=== PATIENT | female | born 1950 | race Caucasian/White ===

== ENCOUNTER → 2019-01-06 14:07 | Outpatient (CLI) | payer MEDICARE, OTHER, SELFPAY ==
[2019-01-06 15:35] LABS: Add Manual Diff / Slide Review NO; Basophils Absolute Auto 0 /uL (0-100); Basophils Percent Auto 0.5 % (0-2); Eosinophils Absolute Auto 100 /uL (0-450); Hematocrit 43.3 % (36-46); Hemoglobin 14.1 g/dL (12.0-16.0); Lymphocytes Absolute Auto 2000 /uL (1100-4500); Lymphocytes Percent Auto 36.2 % (25-40); Mean Corpuscular HGB Conc 32.4 % (30-36); Mean Corpuscular Hemoglobin 29.9 PG (26-34); Mean Corpuscular Volume 92.3 fL (80-100); Monocytes Absolute Auto 400 /uL (0-900); Neutrophils Absolute Auto 3100 /uL (1500-7000); Neutrophils Percent Auto 54.3 % (50-75); Platelet Count 176 X10^3/uL (150-400); Red Cell Distribution Width 14.1 % (11.6-14.8); White Blood Cell Count 5.6 X10^3/uL (4.5-11.0)
[2019-01-06 16:09] LABS: BUN Creatinine Ratio 23.3 (6-22); Blood Urea Nitrogen 14 mg/dL (7-17); Calcium 9.4 mg/dL (8.4-10.2); Carbon Dioxide 27 mmol/L (22-32); Chloride 102 mmol/L (98-107); Cholesterol 233 mg/dL (140-199); Estimated Glomerular Filt Rate > 60.0 mL/min (>60); Glucose 83 mg/dL (80-110); HDL Cholesterol 76 mg/dL (40-60); HEMOLYSIS < 15 (0-50); LDL Cholesterol Calculated 133 mg/dL (<100); Potassium 3.8 mmol/L (3.4-5.1); Sodium 140 mmol/L (137-145); Triglycerides 121 mg/dL (35-150)
[2019-01-06 16:23] LABS: Free T4, Direct Thyroxine 1.11 ng/dL (0.78-2.19)
[2019-01-08 16:20] LABS: Triiodothyronine T3 Total 109 ng/dL (76-181)
== END ==
PROVIDERS: Visit Provider Internal Medicine
DX: R06.02 Shortness of breath (principal); E03.9 Hypothyroidism, unspecified
CPT/HCPCS: 36415; 80048; 80061; 84439; 84443; 84480; 85025

== ENCOUNTER → 2019-02-02 08:12 | Outpatient (CLI) | payer MEDICARE, OTHER, SELFPAY ==
--- NOTE | 2019-02-02 09:17 | PM.TREADMILL ---
Cardiac Stress Test Report Referral & Results Date Patient Seen: 02/02/19 Requesting provider: Rahul Tripp Indication: Shortness of breath Rest ECG: Unremarkable Procedure Note: Today following both written and verbal informed consent the patient was exercised according to a standard Sal protocol patient went for a total of 4 minutes 10 seconds achieving a maximum heart rate of 150 for maximum systolic blood pressure of 160. This is approximately 7.0 METS. Exercise was terminated at this point because of dyspnea and inability of patient to continue. Patient was also given Cardiolite through a previously started Hep-Lock IV by the nuclear reactor operator approximately 1 minute prior to the cessation of exercise. No ST-T segment changes were identified Normal heart rate and blood pressure response to exercise Functional aerobic impairment rated 0 on the sedentary scale Impression: No ECG evidence of ischemia Average exercise capacity Please see perfusion imaging report as well Please note: Actual ECG tracings can be found in the PACS system.
--- NOTE | 2019-02-03 17:55 | DI.NM.S_ITS ---
DATE OF SERVICE: 02/02/2019 PROCEDURE: Exercise perfusion study. INDICATIONS: Shortness of breath on exertion, family history of hypertension. RADIOPHARMACEUTICAL: 25.7 mCi technetium-99m Myoview IV was injected at stress and 27.8 mCi technetium-99m Myoview IV was injected at rest. CARDIAC STRESS: Patient underwent exercise perfusion study under the supervision of an attending staff. She walked on Sal protocol for 4 minutes 10 seconds and achieved 103% of target heart rate. There was normal blood pressure response. There was enhance chronotropic response. Baseline EKG revealed sinus rhythm with flattening of ST segment in inferolateral leads. During exercise, there was up to 0.5 to 1-mm horizontal, as well as upsloping, ST depressions in the inferolateral leads. It quickly returned back to baseline in recovery. There were no significant arrhythmias seen. Patient has significant dyspnea during exertion. RAW DATA: There was breast shadow seen. There was increased subdiaphragmatic activity. GATED STUDY: Stress LV ejection fraction 85% without any obvious wall motion abnormalities. Resting end-diastolic volume is 72 mL. No transient ischemic dilatation. TID ratio is 0.84, which is within normal limits. Lung/heart ratio is 0.33, which is within normal limits. MYOCARDIAL PERFUSION SCAN: Stress supine, resting supine, and stress prone images were compared to each other. Stress and resting supine images revealed very small, minimally decreased perfusion of mid anterior wall which got resolved during prone images suggestive of breast tissue attenuation artifact. CONCLUSION: I will call this study a normal myocardial perfusion study with evidence of breast tissue attenuation artifact which got resolved during prone images. There is no convincing ischemia infarction pattern. Patient has poor exercise tolerance. Functional aerobic impairment +22%. Enhance chronotropic response. Patient has significant shortness of breath on exertion. Would recommend pulmonary workup to rule out pulmonary etiology of shortness of breath as well as 2-D echo to make sure there is no diastolic dysfunction. ZacStacia sherman - MALACHI/mian/ doc#: [id number]/job#: [id number] dd: 02/03/2019 16:44:00 dt: 02/03/2019 17:44:00 DICTATING MD/COPIES TO: Yolanda Davis MD; Rahul Tripp MD COPIES MNE: RAFA MOHAN
== END ==
PROVIDERS: PCP Internal Medicine; Visit Provider Internal Medicine
DX: R06.02 Shortness of breath (principal); Z82.49 Family history of ischemic heart disease and other diseases of the circulatory system
CPT/HCPCS: 78452; 93016; 93017; 93018; A9502

== ENCOUNTER → 2019-02-21 16:49 | Outpatient (CLI) | payer MEDICARE, OTHER, SELFPAY ==
--- NOTE | 2019-02-23 09:36 | PM.PFT.1 ---
Pulmonary Function Test Referral & Results Date Patient Seen: 02/21/19 Requesting provider: Rahul Tripp Results: The spirometry demonstrates an FVC of 2.31 L which is 92% of predicted. The FEV1 was measured at 1.80 L which is 95% of predicted. The FEV1/FVC ratio was 78 which is 102% of predicted. Following the administration of bronchodilator there was a 41% improvement in FEF 25-75%. Lung volumes show an SVC of 1.97 L which is 80% of predicted. The diffusing capacity was measured at 16.62 which is 88% of predicted. No hemoglobin value was provided, so no correction for potential anemia could be made, if appropriate. The maximum voluntary ventilation was reduced Interpretation: This study demonstrates probably normal spirometry. There was a benefit and small airway flow following bronchodilator however based on improvement in FEF 25-75%. This might suggest a very mild element of obstructive lung disease. Lung volumes were minimally reduced suggesting perhaps very mild restrictive lung disease Clinical correlation suggested
== END ==
PROVIDERS: PCP Internal Medicine; Visit Provider Internal Medicine
DX: R06.02 Shortness of breath (principal)
CPT/HCPCS: 94060; 94726; 94729

== ENCOUNTER → 2019-02-23 15:50 | Outpatient (CLI) | payer MEDICARE, OTHER, SELFPAY ==
--- NOTE | 2019-02-23 | DI.ECHO.S_ITS ---
[facility] +---------+ : : [address] : : : : [place], : : : : [place] [address] : : : : Phone: [phone] + [id number] Echocardiogram Report + + :Name: IAN KOWALSKI Study Date: 02/23/2019 Height: 60 in : :[facility] Exam Location: IS Weight: 160 lb : : Gender: Female BSA: 1.7 m2 : :: 1950 Age: 68 yrs BP: 115/75 mmHg: :Reason For Study: SOB : : Performed By: Caitlyn Page : :Referring: LETICIA LIMA : + + Interpretation Summary The ejection fraction is estimated to be 60-65%. There is mild aortic regurgitation. Procedure: A two-dimensional transthoracic echocardiogram with color flow and Doppler was performed. The study quality was technically adequate. There is no prior echocardiogram noted for this patient. The patient was in normal sinus rhythm during the exam. Left Ventricle: The left ventricle is normal in size, wall thickness, and systolic function without any focal wall motion abnormalities. The ejection fraction is estimated to be 60-65%. Left ventricular wall motion is normal. Right Ventricle: The right ventricle is normal in size and function. Atria: The left atrium is mildly dilated. Right atrial size is normal. There is no Doppler evidence for an interatrial shunt. Mitral Valve: The mitral valve is normal in structure and function. There is mild mitral annular calcification. There is trace mitral regurgitation. Aortic Valve: The aortic valve is trileaflet. The aortic valve opens well. There is mild aortic regurgitation. There is an eccentric jet of aortic insufficiency directed against the anterior mitral leaflet. Tricuspid Valve: The tricuspid valve is normal in structure and function. There is trace tricuspid regurgitation. Pulmonic Valve: The pulmonic valve is not well visualized. There is a trace or physiologic amount of pulmonic regurgitation. Great Vessels: The aortic root is normal size. The ascending aorta is normal in size. The pulmonary artery is not well visualized, but is probably normal size. The IVC is of normal diameter and collapses greater than 50% with a sniff. This suggests a low right atrial pressure of 3 mm Hg. Pericardium/ Pleura There is no pericardial effusion. There is no pleural effusion. MMode/2D Measurements & Calculations LVIDd: 4.7 cm AoV Openin.9 cm LVIDs: 3.2 cm LVOT diam: 2.2 cm IVSd: 0.63 cm Ao root diam: 3.3 cm LVPWd: 1.0 cm asc Aorta Diam: 3.0 cm LV gooden. diameter/BSA (cm/m^2): 2.8 LV sys. diameter/BSA (cm/m^2): 1.9 FS: 32.4 % EPSS: 0.25 cm LA A2 area: 20.0 cm2 RA long axis: 5.1 cm LA A4 area: 21.3 cm2 RA area: 17.6 cm2 LA length (vol): 5.6 cm RA vol: 51.6 ml LA vol: 64.6 ml RA : 30.4 ml/m2 LA vol index: 38.0 ml/m2 RVD1 (basal): 3.4 cm IVC diam: 1.8 cm TAPSE: 2.4 cm Doppler Measurements & Calculations Ao V2 max: 124.2 cm/sec LVOT Max Dez: 86.8 cm/sec Ao V2 mean: 91.6 cm/sec LV V1 max P.0 mmHg Ao V2 VTI: 25.7 cm LV V1 VTI: 19.2 cm Ao max P.2 mmHg Ao mean P.7 mmHg KASANDRA(I,D): 2.8 cm2 MV E max dez: 99.7 cm/sec KASANDRA(V,D): 2.6 cm2 MV A max dez: 93.3 cm/sec KASANDRA indexed to BSA (cm^2/m^2): 1.7 MV E/A: 1.1 sev ratio: 0.75 Med Peak E' Dez: 6.9 cm/sec E/E' med: 14.4 Lat Peak E' Dez: 9.4 cm/sec E/E' lat: 10.6 E/e' average: 12.5 MV dec time: 0.15 sec TR max dez: 196.0 cm/sec MV P1/2t: 47.2 msec TR max P.5 mmHg MVA(P1/2t): 4.7 cm2 PA V2 max: 60.5 cm/sec SV(LVOT): 72.2 ml PA V2 mean: 47.6 cm/sec PA mean P.97 mmHg PA Accel Time: 0.17 sec Reading Physician:05:28 PM
== END ==
PROVIDERS: PCP Internal Medicine; Visit Provider Internal Medicine
DX: I35.1 Nonrheumatic aortic (valve) insufficiency (principal); R06.02 Shortness of breath
CPT/HCPCS: 93306

== ENCOUNTER → 2020-09-18 10:04 | Outpatient (CLI) | payer MEDICARE, OTHER, SELFPAY ==
[2020-09-18 12:01] LABS: Alanine Aminotransferase 16 IU/L (<35); Albumin 4.2 g/dL (3.5-5.0); Albumin Globulin Ratio 1.6 (1.0-2.8); Alkaline Phosphatase 95 U/L (38-126); Aspartate Aminotransferase 27 IU/L (14-36); BUN Creatinine Ratio 25.9 (6-22); Bilirubin Total 0.6 mg/dL (0.2-1.3); Blood Urea Nitrogen 14 mg/dL (7-17); Calcium 9.4 mg/dL (8.4-10.2); Carbon Dioxide 30 mmol/L (22-32); Chloride 104 mmol/L (98-107); Cholesterol 185 mg/dL (140-199); Estimated Glomerular Filt Rate > 60.0 mL/min (>60); Globulin 2.7 g/dL (1.7-4.1); Glucose 94 mg/dL (80-110); HDL Cholesterol 63 mg/dL (40-60); HEMOLYSIS < 15 (0-50); LDL Cholesterol Calculated 98 mg/dL (<100); Potassium 4.4 mmol/L (3.4-5.1); Sodium 138 mmol/L (137-145); Total Protein 6.9 g/dL (6.3-8.2); Triglycerides 119 mg/dL (35-150)
[2020-09-18 12:18] LABS: Free T3, Triiodothyronine Free 5.02 pg/mL (2.77-5.27); Free T4, Direct Thyroxine 1.03 ng/dL (0.78-2.19)
[2020-09-18 12:31] LABS: Thyroid Stimulating Hormone 1.67 uIU/mL (0.47-4.68)
== END ==
PROVIDERS: PCP Registered Nurse; Referring Provider Registered Nurse; Visit Provider Registered Nurse
DX: E03.9 Hypothyroidism, unspecified (principal); Z79.899 Other long term (current) drug therapy; Z82.49 Family history of ischemic heart disease and other diseases of the circulatory system
CPT/HCPCS: 36415; 80053; 80061; 84439; 84443; 84481

== ENCOUNTER → 2020-09-24 10:02 | Outpatient (CLI) | payer MEDICARE, OTHER, SELFPAY | PROVIDERS: PCP Registered Nurse; Referring Provider Registered Nurse; Visit Provider Registered Nurse | DX: M81.0 Age-related osteoporosis without current pathological fracture (principal) | CPT/HCPCS: 77080 ==

== ENCOUNTER → 2021-10-09 09:29 | Outpatient (CLI) | payer MEDICARE, OTHER, SELFPAY ==
[2021-10-09 10:59] LABS: Free T3, Triiodothyronine Free 3.53 pg/mL (2.77-5.27); Free T4, Direct Thyroxine 1.01 ng/dL (0.78-2.19)
[2021-10-09 11:12] LABS: Thyroid Stimulating Hormone 1.57 uIU/mL (0.47-4.68)
== END ==
PROVIDERS: PCP Registered Nurse; Referring Provider Registered Nurse; Visit Provider Registered Nurse
DX: E03.9 Hypothyroidism, unspecified (principal)
CPT/HCPCS: 36415; 84439; 84443; 84481

== ENCOUNTER → 2021-10-31 10:07 | Outpatient (CLI) | payer MEDICARE, OTHER, SELFPAY ==
[2021-10-31 12:31] LABS: Add Manual Diff / Slide Review NO; Basophils Absolute Auto 100 /uL (0-100); Basophils Percent Auto 1.1 % (0-2); Eosinophils Absolute Auto 100 /uL (0-450); Eosinophils Percent Auto 2.3 % (2-4); Hematocrit 39.7 % (36-46); Hemoglobin 13.2 g/dL (12.0-16.0); Lymphocytes Absolute Auto 1900 /uL (1100-4500); Lymphocytes Percent Auto 41.6 % (25-40); Mean Corpuscular HGB Conc 33.2 % (30-36); Mean Corpuscular Hemoglobin 30.3 PG (26-34); Mean Corpuscular Volume 91.3 fL (80-100); Monocytes Absolute Auto 400 /uL (0-900); Monocytes Percent Auto 7.9 % (3-14); Neutrophils Absolute Auto 2200 /uL (1500-7000); Neutrophils Percent Auto 47.1 % (50-75); Platelet Count 193 X10^3/uL (150-400); Red Blood Cell Count 4.35 X10^6/uL (4.0-5.2); Red Cell Distribution Width 14.2 % (11.6-14.8); White Blood Cell Count 4.6 X10^3/uL (4.5-11.0)
== END ==
PROVIDERS: PCP Registered Nurse; Referring Provider Student in an Organized Health Care Education/Training Program; Visit Provider Student in an Organized Health Care Education/Training Program
DX: Z00.00 Encounter for general adult medical examination without abnormal findings (principal)
CPT/HCPCS: 36415; 85025

== ENCOUNTER → 2021-11-20 09:06 | Outpatient (CLI) | payer MEDICARE, OTHER, SELFPAY ==
[2021-11-20 11:28] LABS: Alanine Aminotransferase 12 IU/L (<35); Albumin 4.1 g/dL (3.5-5.0); Albumin Globulin Ratio 1.8 (1.0-2.8); Alkaline Phosphatase 63 U/L (38-126); Aspartate Aminotransferase 24 IU/L (14-36); BUN Creatinine Ratio 13.8 (6-22); Bilirubin Total 0.5 mg/dL (0.2-1.3); Blood Urea Nitrogen 9 mg/dL (7-17); Calcium 9.3 mg/dL (8.4-10.2); Carbon Dioxide 29 mmol/L (22-32); Chloride 105 mmol/L (98-107); Cholesterol 174 mg/dL (140-199); Estimated Glomerular Filt Rate > 60.0 mL/min (>60); Globulin 2.3 g/dL (1.7-4.1); Glucose 90 mg/dL (80-110); HDL Cholesterol 63 mg/dL (40-60); HEMOLYSIS < 15 (0-50); LDL Cholesterol Calculated 92 mg/dL (<100); Potassium 4.2 mmol/L (3.4-5.1); Sodium 139 mmol/L (137-145); Total Protein 6.4 g/dL (6.3-8.2); Triglycerides 93 mg/dL (35-150)
== END ==
PROVIDERS: PCP Registered Nurse; Referring Provider Registered Nurse; Visit Provider Registered Nurse
DX: E03.9 Hypothyroidism, unspecified (principal); E78.5 Hyperlipidemia, unspecified
CPT/HCPCS: 36415; 80053; 80061

== ENCOUNTER → 2022-11-05 15:27 | Outpatient (CLI) | payer MEDICARE, OTHER, SELFPAY ==
--- NOTE | 2022-11-05 15:29 | DI.RAD.S_ITS ---
PROCEDURE: XR KNEE RT 3V INDICATIONS: standing weight bearing AP and lat, as well as sunrise TECHNIQUE: 3 views of the knee were acquired. COMPARISON: None. FINDINGS: Bones: No fractures or dislocations. No suspicious bony lesions. Mild tricompartmental periarticular osteophyte formation. Severe medial compartment narrowing. Soft tissues: No joint effusion. No suspicious soft tissue calcifications. IMPRESSION: 1. Osteoarthritis with medial compartment narrowing. 2. No acute fracture. No osseous lesion. If symptoms and/or clinical suspicion for pathology persist, further assessment with repeat, or advanced imaging (e.g., CT, MRI, or bone scan) may be helpful for further assessment. Dictated by: Christa Sauer M.D. on 11/05/2022 at 16:20 Transcribed by: TOBI on 11/05/2022 at 16:20 Approved by: Christa Sauer M.D. on 11/05/2022 at 16:33
[2022-11-05 17:45] LABS: BUN Creatinine Ratio 22.2 (6-22); Blood Urea Nitrogen 18 mg/dL (7-17); Calcium 9.2 mg/dL (8.4-10.2); Carbon Dioxide 23 mmol/L (22-32); Chloride 104 mmol/L (98-107); Estimated Glomerular Filt Rate > 60 mL/min (>60); Glucose 84 mg/dL (80-110); HEMOLYSIS < 15 (0-50); Potassium 4.3 mmol/L (3.4-5.1); Sodium 136 mmol/L (137-145)
[2022-11-05 17:58] LABS: Free T3, Triiodothyronine Free 3.69 pg/mL (2.77-5.27)
[2022-11-05 18:11] LABS: Thyroid Stimulating Hormone 1.51 uIU/mL (0.47-4.68)
== END ==
PROVIDERS: PCP Family Medicine; Referring Provider Family Medicine; Visit Provider Family Medicine
DX: M25.561 Pain in right knee (principal); M17.11 Unilateral primary osteoarthritis, right knee; E03.9 Hypothyroidism, unspecified
CPT/HCPCS: 36415; 73562; 80048; 84439; 84443; 84481

== ENCOUNTER → 2022-11-06 15:01 | Outpatient (CLI) | payer MEDICARE, OTHER, SELFPAY ==
[2022-11-07 17:01] LABS: Fecal Immunochemical Test Negative (Negative)
== END ==
PROVIDERS: PCP Family Medicine; Referring Provider Family Medicine; Visit Provider Family Medicine
DX: Z12.11 Encounter for screening for malignant neoplasm of colon (principal)
CPT/HCPCS: 82274

== ENCOUNTER → 2024-02-17 09:30 | Outpatient (CLI) | payer MEDICARE, OTHER, SELFPAY ==
[2024-02-17 11:05] LABS: BUN Creatinine Ratio 20.7 (6-22); Blood Urea Nitrogen 12 mg/dL (7-17); Calcium 9.4 mg/dL (8.4-10.2); Carbon Dioxide 27 mmol/L (22-32); Chloride 107 mmol/L (98-107); Cholesterol 173 mg/dL (140-199); Estimated Glomerular Filt Rate > 60 mL/min (>60); Glucose 100 mg/dL (80-110); HDL Cholesterol 76 mg/dL (40-60); HEMOLYSIS < 15 (0-50); LDL Cholesterol Calculated 78 mg/dL (<100); Potassium 4.4 mmol/L (3.4-5.1); Sodium 139 mmol/L (137-145); Triglycerides 93 mg/dL (35-150)
[2024-02-17 11:16] LABS: Free T3, Triiodothyronine Free 5.61 pg/mL (2.77-5.27); Free T4, Direct Thyroxine 1.13 ng/dL (0.78-2.19)
[2024-02-17 11:29] LABS: Thyroid Stimulating Hormone 1.19 uIU/mL (0.47-4.68)
== END ==
LOC: LAB 09:31
PROVIDERS: PCP Family Medicine; Referring Provider Family Medicine; Visit Provider Family Medicine
DX: E78.5 Hyperlipidemia, unspecified (principal); E66.9 Obesity, unspecified; M81.0 Age-related osteoporosis without current pathological fracture; E03.9 Hypothyroidism, unspecified; Z79.899 Other long term (current) drug therapy
CPT/HCPCS: 36415; 80048; 80061; 84439; 84443; 84481

== ENCOUNTER 2024-10-25 07:30 | Outpatient (RCR) | payer MEDICARE, OTHER, SELFPAY ==
--- NOTE | 2024-08-26 18:31 | PT.OIE ---
Current Diagnoses Sciatica, left side (08/26/24) Muscle weakness (generalized) (08/26/24) Other female genital prolapse (08/26/24) Pelvic and perineal pain (08/26/24) Flatulence (08/26/24) Past Medical History (Last Updated 02/23/24 @ 09:51 by Sofiya Maravilla DO) Breathing-related sleep disorder Essential hypertension Family history of heart disease Gingivitis History of HPV infection Papanicolaou smear of cervix with positive high risk human papilloma virus (HPV) test Snoring Past Surgical History (Last Reviewed 08/11/24 @ 16:36 by Tran Leyva MD) History of laparotomy Status post tonsillectomy and adenoidectomy [place] teeth extracted Visit Care Team Role Provider Type Sofiya Maravilla DO Family Provider Physician Primary Care Provider Specialty: Medical Address: [address] [place] [address], [address], [place], [address] Email: [email or web address] Tran Leyva MD Attending Provider Physician Referring Provider Specialty: Gynecology MANAGER ETL Obstetrics Address: [address] [place] [address] [address] [place] [address], [id number] Email: [email or web address] Physical Therapy Initial Evaluation PT-OP-A Visit Information Start: 08/16/24 18:13 Freq: Status: Active Protocol: Document 08/26/24 14:37 LRN (Rec: 08/26/24 15:36 LRN [id number]) Out-Patient Physical Therapy Visit Information Visit Information Visit Type Initial Evaluation Visit Start Time 14:37 Visit Stop Time 15:33 Visit Number 1 Evaluation Information Evaluation Date 08/26/24 Precautions Precautions LATEX ALLERGY, osteoporosis . PT-OP-B Current Condition Start: 08/16/24 18:13 Freq: Status: Active Protocol: Document 08/26/24 14:37 LRN (Rec: 08/26/24 15:36 LRN [id number]) Current Condition History of Current Condition Onset Date 11/2023 Current Complaints With pessary, has pelvic pain in PF and Pelvic bowel/hip/ back pain History of Current Condition After coughing from a respiratory infection she began to have a cramping feeling in lower abdomen and felt excessive tissue in PF and very sore and uncomfortable, like raw tissue . Reports she has a rectocele, cystocele and uterine prolapse. She has had a pessary since 05/2024, and removes pessary once a week to be overnight without pessary. Uses Estradiol creme 2x/week . Pt with Romanian accent, is retired and lives with spouse , she has DA in [place] who is a nurse and DA in [place] who is a retired [employer]. Prior Treatments and Tests Chiropractic adjustments as needed for back/hip pain. Does yoga daily for 20 yrs. Treatment Goals Patient/Caregiver Goals Pt goals: - Improve PF strength to stop leaking, with coughing, sit<> stand, and urge. - Decrease Pelvic Pain dull ache (when pessary is in). - Decrease pelvic bowel pain - HEP. Personal Factors Other Personal Factors That May Effect Yoga 20 min/day, line dancing Therapy/Recovery 1x/wee,. Diagnosis of rectocele, cystocele and uterine prolapse , Hypothyroid, Currently having L Sciatic pain, R medial knee pain, and Pelvic Bowl pain. PT-OP-C Subjective Start: 08/16/24 18:13 Freq: Status: Active Protocol: Document 08/26/24 14:37 LRN (Rec: 08/26/24 15:36 LRN [id number]) Patient Questionnaires Pelvic Floor Distress Inventory Questionnaire (PFDI- SF20) Pelvic Floor Score 62.5 Pelvic Pain and Urgency/Frequency Patient Symptom Scale Pelvic Pain Score 8 OP-PT Pain Assessment Pain Assessment Grid Paper Pain Assessment Grid Completed Yes Location L Sciatic-like pain Pain Location Details Pain in sit bone radiating thru hip flexors > down lateral thigh to knee. Intensity 3 Scale Used Numeric (0 - 10) Description Sharp,Shooting Frequency Intermittent Pain Duration Short with residual weakness of L leg. Pelvic Floor Pain Location Details Perineum Intensity 3 Scale Used Numeric (0 - 10) Description Aching,Burning Description- Other Like a bruise Frequency Constant PT-OP-I Pelvic Floor Start: 08/16/24 18:13 Freq: Status: Active Protocol: Document 08/26/24 14:37 LRN (Rec: 08/26/24 15:36 LRN [id number]) Pelvic Floor Assessment Urine Pelvic Floor Surgery No Urinary Symptoms Incomplete Emptying,Pain Other Urinary Symptoms Pessary in place. Leakage Size Small Leakage Cause Cough,Sneeze,Urge Leaks Per Day 1-2x/day. Voiding Frequency 7x during day Nocturia 1-2 Pads Used In 24 Hours 0-1 if planning on being somewhere she might be in emergency situation. Urine Pad Type Panty Liner Bowel Bowel Surgery No Bowel Movement Frequency 2/day (before pessary was 4-5/ day) Pelvic Clock Pelvic Clock Other Tenderness at Pelvic clock 6. Prolapse Urethrocele Grade 2 Prolapse Comments Not able to assess prolapses due to pessary 2.5 cm from vaginal opening. Perineal Descent Resting Present Bearing Present Contraction Ability Voluntary Contraction Weak Manual Muscle Testing Left 0 Manual Muscle Testing Right 1 Manual Muscle Testing Anterior 1 Manual Muscle Testing Posterior 0 Muscle Endurance (Seconds) 1 Number of Quick Contractions In 10 3 Seconds Comments Pelvic Floor Comments PF strength assessed with pessary 2.5 cm from vaginal opening. PT-OP-J Posture/Palpation/Skin Start: 08/16/24 18:13 Freq: Status: Active Protocol: Document 08/26/24 14:37 LRN (Rec: 08/26/24 15:36 LRN [id number]) Posture Evaluation Position Standing Head/C-Spine Posture Forward Head T-Spine Posture Increased Kyphosis L-Spine Posture Increased Lordosis Pelvis Posture (L) PSIS Posterior Weight Distribution Weight Shifted Right Comments Posture Comments Stem cell therapy given in L knee. Standing causes L lateral hip/ thigh pain onset. PT-OP-K Range of Motion Start: 08/16/24 18:13 Freq: Status: Active Protocol: Document 08/26/24 14:37 LRN (Rec: 08/26/24 15:36 LRN [id number]) Lumbar Spine Range of Motion Lumbar Spine Active Degrees Testing Position Standing Flexion 110 Extension 15 Rotation Left 20 Rotation Right 20 Lateral Flexion Left 10 Lateral Flexion Right 10 Hip Goniometric Range of Motion Hip Right Passive Testing Position Supine Internal Rotation 35 External Rotation 50 Left Passive Testing Position Supine Internal Rotation 35 External Rotation 50 PT-OP-M Strength Start: 08/16/24 18:13 Freq: Status: Active Protocol: Document 08/26/24 14:37 LRN (Rec: 08/26/24 15:36 LRN [id number]) Hip Strength Hip Manual Muscle Testing Right Flexion (L2) 4 Good Extension (S1) 3 Fair Comments Strength is 5/5 except as indicated above. Left Extension (S1) 3 Fair External Rotation 4+ Good+ Comments Strength is 5/5 except as indicated above. PT-OP-Q Treatments Start: 08/16/24 18:13 Freq: Status: Active Protocol: Document 08/26/24 14:37 LRN (Rec: 08/26/24 15:36 LRN [id number]) Self-Care/Home Management Treatment Education Other Education Discussed results of evaluation, goals, treatment, and plan of care (POC) with pt , discussed attendance/cx/dns policy; pt agreeable to evaluation, goals, treatment, attendance/cx/dns policy and POC. Activities Self-Care/Home Management Activities Issued & reviewed HEP: Kegel ex's and discussed exercise of Quick Flicks, Long Holds and Aggravators. PT-OP-T Assessment and Plan Start: 08/16/24 18:13 Freq: Status: Active Protocol: Document 08/26/24 14:37 LRN (Rec: 08/26/24 15:36 LRN [id number]) Physical Therapy Assessment Rehab Potential Rehabilitation Potential Good Evaluation Complexity Number of Personal Factors/Comorbidities 3 or More Number of Body Systems Impaired 4 or More Clinical Presentation at Evaluation Evolving Impairments Impairments Activity Tolerance,Pain, Posture,ROM,Soft Tissue Mobility,Strength,Transfers Other Impairments Coordination of breath with transfers Goals Four Impairment Intermittent L Sciatic/[place] Pelvic bowel pain, 3/10 Custodial Goal (LTG) Improve pt posture, strengthen core to reduce onset or eliminate intermittent L sciatic pain. LTG Duration 11/18/24 Three Impairment Pelvic pain (dull ache, 3/10 when pessary is in) Short Term Goal (STG) Strengthen PF, reducing pelvic pain to intemittent when pessary is in. STG Duration 10/07/24 Custodial Goal (LTG) Improve PF strength to decrease or eliminate pelvic pain. LTG Duration 11/18/24 Two Impairment Stress urinary leakage Short Term Goal (STG) Pt will be educated and able to use urge deference technique to eliminate urinary leakage with a strong urge. STG Duration 10/07/24 Custodial Goal (LTG) Improve PF strength to stop urinary leakage 90-100% of the time, with coughing, sit<> stand. LTG Duration 11/18/24 One Impairment Pt lacks an independent self care HEP. Short Term Goal (STG) Pt will be educated and able to demonstrate transfers to lessen core abdominal pressure . STG Duration 10/07/24 Custodial Goal (LTG) Pt will be independent in a self care HEP for PF strengthening. LTG Duration 11/18/24 Assessment Summary Assessment Pt is a 74 yo female who presents with cystocele, rectocele, uterine prolapse due to PF weakness after illness causing excessive core pressure and PF weakness, also with new onset of pelvic bowl and L sciatic pain. Her Cystocele, rectocele, and uterine prolapse is being managed by a pessary that she removes weekly to give her tissue and overnight rest from use; therefore I was not able to assess for the prolapses. Her PF and pelvic bowl pain may be associated to pessary fit as pt replaces it weekly on Sundays. Today, Thursday, her pessary was 2.5 cm from the vaginal opening and she had discomfort at lower abdomen with light palpation. If her PF pain persists after her PF rehab, then assessment for pt education in proper pessary fit may be needed. The pt will benefit from skilled physical therapy to achieve the above stated goals . Extension of her plan of care may be needed due if pt encounters scheduling difficulties. Physical Therapy Plan Frequency and Duration Frequency of Treatment 1x/Week Duration of treatment (weeks) 12 Plan of Care Start Date 08/26/24 Plan of Care End Date 11/18/24 Therapeutic Interventions Therapeutic Interventions Home Exercise Program,Manual Therapy,Neuromuscular Re- education,Self-Care/Home Management,Soft Tissue Mobilization,Therapeutic Activities,Therapeutic Exercises Other Therapeutic Interventions Hot or cold pack with exercise . Next Visit Focus/Plan Next Note Type Treatment Note Next Visit Plan Next: Assess for pelvic obliquity, review Kegels and initiate core pressure management, for proper coordinated breathing with transfers and body mechanics and ADL training. Ther Ex: proper Kegel on wedge without use of substitute muscles, PF/core ( rot)/L hip strengthening (ER, ext), LE roll in/out w/core stab, & improve hip IR and trunk rot mobility. STM/stretch: L Glut med/ Piriformis to reduce sciatic pain, ?Gentle sacral balancing if needed. Pt education in self care pain mgmt (hot, cold, hot/cold) POC: Pt education & self care management, manual therapy, therapeutic exercises, therapeutic activities, and neuromuscular reeducation.
--- NOTE | 2024-08-26 18:32 | PT.OPPOC ---
Physical, Occupational & Speech Therapy At [facility] Current Diagnoses Sciatica, left side (08/26/24) Muscle weakness (generalized) (08/26/24) Other female genital prolapse (08/26/24) Pelvic and perineal pain (08/26/24) Flatulence (08/26/24) Visit Care Team Role Provider Type Sofiya Maravilla DO Family Provider Physician Primary Care Provider Specialty: Medical Address: [address] [place] [address], [address], [address] Email: [email or web address] Tran Leyva MD Attending Provider Physician Referring Provider Specialty: Gynecology BUSINESS PROCESS ARCHITECT Obstetrics Address: [address] [place] [address] [address] [place] [address], [address] Email: [email or web address] Plan Of Care PT-OP-B Current Condition Start: 08/16/24 18:13 Freq: Status: Active Protocol: Document 08/26/24 14:37 LRN (Rec: 08/26/24 15:36 LRN [id number]) Current Condition History of Current Condition Onset Date 11/2023 Current Complaints With pessary, has pelvic pain in PF and Pelvic bowel/hip/ back pain History of Current Condition After coughing from a respiratory infection she began to have a cramping feeling in lower abdomen and felt excessive tissue in PF and very sore and uncomfortable, like raw tissue . Reports she has a rectocele, cystocele and uterine prolapse. She has had a pessary since 05/2024, and removes pessary once a week to be overnight without pessary. Uses Estradiol creme 2x/week . 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 Prior Treatments and Tests Chiropractic adjustments as needed for back/hip pain. Does yoga daily for 20 yrs. Treatment Goals Patient/Caregiver Goals Pt goals: - Improve PF strength to stop leaking, with coughing, sit<> stand, and urge. - Decrease Pelvic Pain dull ache (when pessary is in). - Decrease pelvic bowel pain - HEP. Personal Factors Other Personal Factors That May Effect Yoga 20 min/day, line dancing Therapy/Recovery 1x/wee,. Diagnosis of rectocele, cystocele and uterine prolapse , Hypothyroid, Currently having L Sciatic pain, R medial knee pain, and Pelvic Bowl pain. PT-OP-T Assessment and Plan Start: 08/16/24 18:13 Freq: Status: Active Protocol: Document 08/26/24 14:37 LRN (Rec: 08/26/24 15:36 LRN [id number]) Physical Therapy Assessment Rehab Potential Rehabilitation Potential Good Evaluation Complexity Number of Personal Factors/Comorbidities 3 or More Number of Body Systems Impaired 4 or More Clinical Presentation at Evaluation Evolving Impairments Impairments Activity Tolerance,Pain, Posture,ROM,Soft Tissue Mobility,Strength,Transfers Other Impairments Coordination of breath with transfers Goals Four Impairment Intermittent L Sciatic/Keyon Pelvic bowel pain, 3/10 Spud Sorter Goal (LTG) Improve pt posture, strengthen core to reduce onset or eliminate intermittent L sciatic pain. LTG Duration 11/18/24 Three Impairment Pelvic pain (dull ache, 3/10 when pessary is in) Short Term Goal (STG) Strengthen PF, reducing pelvic pain to intemittent when pessary is in. STG Duration 10/07/24 Fdc Goal (LTG) Improve PF strength to decrease or eliminate pelvic pain. LTG Duration 11/18/24 Two Impairment Stress urinary leakage Short Term Goal (STG) Pt will be educated and able to use urge deference technique to eliminate urinary leakage with a strong urge. STG Duration 10/07/24 Spud Sorter Goal (LTG) Improve PF strength to stop urinary leakage 90-100% of the time, with coughing, sit<> stand. LTG Duration 11/18/24 One Impairment Pt lacks an independent self care HEP. Short Term Goal (STG) Pt will be educated and able to demonstrate transfers to lessen core abdominal pressure . STG Duration 10/07/24 Fdc Goal (LTG) Pt will be independent in a self care HEP for PF strengthening. LTG Duration 11/18/24 Assessment Summary Assessment Pt is a 74 yo female who presents with cystocele, rectocele, uterine prolapse due to PF weakness after illness causing excessive core pressure and PF weakness, also with new onset of pelvic bowl and L sciatic pain. Her Cystocele, rectocele, and uterine prolapse is being managed by a pessary that she removes weekly to give her tissue and overnight rest from use; therefore I was not able to assess for the prolapses. Her PF and pelvic bowl pain may be associated to pessary fit as pt replaces it weekly on Sundays. Today, Thursday, her pessary was 2.5 cm from the vaginal opening and she had discomfort at lower abdomen with light palpation. If her PF pain persists after her PF rehab, then assessment for pt education in proper pessary fit may be needed. The pt will benefit from skilled physical therapy to achieve the above stated goals . Extension of her plan of care may be needed due if pt encounters scheduling difficulties. Physical Therapy Plan Frequency and Duration Frequency of Treatment 1x/Week Duration of treatment (weeks) 12 Plan of Care Start Date 08/26/24 Plan of Care End Date 11/18/24 Therapeutic Interventions Therapeutic Interventions Home Exercise Program,Manual Therapy,Neuromuscular Re- education,Self-Care/Home Management,Soft Tissue Mobilization,Therapeutic Activities,Therapeutic Exercises Other Therapeutic Interventions Hot or cold pack with exercise . Next Visit Focus/Plan Next Note Type Treatment Note Next Visit Plan Next: Assess for pelvic obliquity, review Kegels and initiate core pressure management, for proper coordinated breathing with transfers and body mechanics and ADL training. Ther Ex: proper Kegel on wedge without use of substitute muscles, PF/core ( rot)/L hip strengthening (ER, ext), LE roll in/out w/core stab, & improve hip IR and trunk rot mobility. STM/stretch: L Glut med/ Piriformis to reduce sciatic pain, ?Gentle sacral balancing if needed. Pt education in self care pain mgmt (hot, cold, hot/cold) POC: Pt education & self care management, manual therapy, therapeutic exercises, therapeutic activities, and neuromuscular reeducation. Plan of Care Dates Plan of Care Start Date 08/26/24 Plan of Care End Date 11/18/24 Electronically Signed by: Rosalba Starkey, PT 08/26/24 0672 If you are in agreement with this Plan of Care, please return a signed and dated copy. I have reviewed this Plan of Care and certify that the skilled therapy services above are required to meet the patient?s needs. Physician Signature Date Printed Name and Credentials Clinical Instructor Signature Printed Name and Credentials
--- NOTE | 2024-09-02 15:17 | PT.OTN ---
Current Diagnoses Sciatica, left side (09/02/24) Muscle weakness (generalized) (09/02/24) Other female genital prolapse (09/02/24) Pelvic and perineal pain (09/02/24) Flatulence (09/02/24) Physical Therapy Treatment Note PT-OP-A Visit Information Start: 08/16/24 18:13 Freq: Status: Active Protocol: Document 09/02/24 13:47 LRN (Rec: 09/02/24 15:12 LRN [id number]) Out-Patient Physical Therapy Visit Information Visit Information Visit Type Treatment Note Visit Start Time 13:47 Visit Stop Time 14:33 Visit Number 2 Evaluation Information Evaluation Date 08/26/24 Precautions Precautions LATEX ALLERGY, osteoporosis . 1 leg longer as told by chiropractor. PT-OP-B Current Condition Start: 08/16/24 18:13 Freq: Status: Active Protocol: Document 08/26/24 14:37 LRN (Rec: 08/26/24 15:36 LRN [id number]) Current Condition History of Current Condition Onset Date 11/2023 Current Complaints With pessary, has pelvic pain in PF and Pelvic bowel/hip/ back pain History of Current Condition After coughing from a respiratory infection she began to have a cramping feeling in lower abdomen and felt excessive tissue in PF and very sore and uncomfortable, like raw tissue . Reports she has a rectocele, cystocele and uterine prolapse. She has had a pessary since 05/2024, and removes pessary once a week to be overnight without pessary. Uses Estradiol creme 2x/week . 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 Prior Treatments and Tests Chiropractic adjustments as needed for back/hip pain. Does yoga daily for 20 yrs. Treatment Goals Patient/Caregiver Goals Pt goals: - Improve PF strength to stop leaking, with coughing, sit<> stand, and urge. - Decrease Pelvic Pain dull ache (when pessary is in). - Decrease pelvic bowel pain - HEP. Personal Factors Other Personal Factors That May Effect Yoga 20 min/day, line dancing Therapy/Recovery 1x/wee,. Diagnosis of rectocele, cystocele and uterine prolapse , Hypothyroid, Currently having L Sciatic pain, R medial knee pain, and Pelvic Bowl pain. PT-OP-C Subjective Start: 08/16/24 18:13 Freq: Status: Active Protocol: Document 09/02/24 13:47 LRN (Rec: 09/02/24 15:12 LRN [id number]) OP-PT Subjective Patient Comments Patient Comments States she is more aware of the ms without pessary in. Not as much lower abdominal pain without pessary in. Last chiropractor adjustment 4 months ago. PT-OP-I Pelvic Floor Start: 08/16/24 18:13 Freq: Status: Active Protocol: Document 09/02/24 13:47 LRN (Rec: 09/02/24 15:12 LRN [id number]) Pelvic Floor Assessment Pelvic Clock Pelvic Clock Other No tenderness around the Pelvic Clock Prolapse Cystocele Grade 3 Urethrocele Grade 3 Prolapse Comments Supine: Pt urethra and bladder is not extending past the vaginal canal opening. Perineal Descent Resting Present Bearing Present Contraction Ability Voluntary Contraction Weak Manual Muscle Testing Left 1 Manual Muscle Testing Right 1 Manual Muscle Testing Anterior 0 Manual Muscle Testing Posterior 3 Muscle Endurance (Seconds) 4 Number of Quick Contractions In 10 1 Seconds Comments Pelvic Floor Comments With an isolated PF contraction: Endurance is 4 secs on the L sidewall, and 3 secs on the R sidewall, 1-2 secs posterior. Quick Contraction: Contraction not felt after the first contraction, but pt tries to contract by using her gluteal, hip AD and TA muscles. PT-OP-J Posture/Palpation/Skin Start: 08/16/24 18:13 Freq: Status: Active Protocol: Document 09/02/24 13:47 LRN (Rec: 09/02/24 15:14 LRN [id number]) Palpation Assessment Location Leg length Palpation Location ASIS>Medial Malleolus Palpation Details 83 cm Right, 81.5 cm Left. PT-OP-K Range of Motion Start: 08/16/24 18:13 Freq: Status: Active Protocol: Document 08/26/24 14:37 LRN (Rec: 08/26/24 15:36 LRN [id number]) Lumbar Spine Range of Motion Lumbar Spine Active Degrees Testing Position Standing Flexion 110 Extension 15 Rotation Left 20 Rotation Right 20 Lateral Flexion Left 10 Lateral Flexion Right 10 Hip Goniometric Range of Motion Hip Right Passive Testing Position Supine Internal Rotation 35 External Rotation 50 Left Passive Testing Position Supine Internal Rotation 35 External Rotation 50 PT-OP-M Strength Start: 08/16/24 18:13 Freq: Status: Active Protocol: Document 08/26/24 14:37 LRN (Rec: 08/26/24 15:36 LRN [id number]) Hip Strength Hip Manual Muscle Testing Right Flexion (L2) 4 Good Extension (S1) 3 Fair Comments Strength is 5/5 except as indicated above. Left Extension (S1) 3 Fair External Rotation 4+ Good+ Comments Strength is 5/5 except as indicated above. PT-OP-Q Treatments Start: 08/16/24 18:13 Freq: Status: Active Protocol: Document 09/02/24 13:47 LRN (Rec: 09/02/24 15:12 LRN [id number]) Therapeutic Exercises Supine Exercises Hips elevated/Isolated Kegel Supine Exercise Name Long Hold Reps/Minutes 3' Comments Pt finds easier to contract on exhale. 5-6 reps PF weakens. Isolated Kegel Supine Exercise Name Quick & Long hold Kegels Reps/Minutes 10x & 1x2 respectively Longhold Kegel Reps/Minutes 10 SH f/b rest x 2 Comments See PF assessment Quick Kegel Reps/Minutes 10x 2 Comments See PF assessment Therapeutic Activity Therapeutic Activity Bladder retraining Name Using urge deference technique pt able to supress urge to urinate. Reps/Minutes 5' Comments Pt cued through technique to defer urge. Manual Therapy Treatment Consent Patient gave verbal consent for manual Yes treatment Soft Tissue Mobilization Sacral Balancing Body Location Gentle assess of sacrum and fascia of sacrum Intensity/Depth Superficial Body Position Prone Comments L STEVE decreased inferior glide and PA mvmt. Decreased L Shear of sacrum ( shear to R caused RLE sciatic, shear to L caused L toe tingling). Extension of sacral fascia caused increased pain into L hip/lat thigh; Flexion of sacral fascia did not caused a change in pain that pt couldn't describe. L ischium decreased w/PA pressure. Ischium and PSIS compression- no change in pain. Self-Care/Home Management Treatment Activities Self-Care/Home Management Activities Issued Bladder diary copies for 7 days. PT-OP-T Assessment and Plan Start: 08/16/24 18:13 Freq: Status: Active Protocol: Document 09/02/24 13:47 LRN (Rec: 09/02/24 15:12 LRN [id number]) Physical Therapy Assessment Goals Four Impairment Intermittent L Sciatic/Keyon Pelvic bowel pain, 3/10 Wagon Driver Salesperson Goal (LTG) Improve pt posture, strengthen core to reduce onset or eliminate intermittent L sciatic pain. LTG Duration 11/18/24 Three Impairment Pelvic pain (dull ache, 3/10 when pessary is in) Short Term Goal (STG) Strengthen PF, reducing pelvic pain to intemittent when pessary is in. STG Duration 10/07/24 Wagon Driver Salesperson Goal (LTG) Improve PF strength to decrease or eliminate pelvic pain. LTG Duration 11/18/24 Two Impairment Stress urinary leakage Short Term Goal (STG) Pt will be educated and able to use urge deference technique to eliminate urinary leakage with a strong urge. 09/02/24: Used Urge deference technique to defer need to urinate with a strong urge through therapy session. STG Duration 10/07/24 progressed 09/02/24 Assisted Goal (LTG) Improve PF strength to stop urinary leakage 90-100% of the time, with coughing, sit<> stand. LTG Duration 11/18/24 One Impairment Pt lacks an independent self care HEP. Short Term Goal (STG) Pt will be educated and able to demonstrate transfers to lessen core abdominal pressure . STG Duration 10/07/24 Assisted Goal (LTG) Pt will be independent in a self care HEP for PF strengthening. LTG Duration 11/18/24 Assessment Summary Assessment 74 yo female fit with pessary, w/cystocele, rectocele, uterine prolapse due PF weakness, and pelvic & L sciatic pain, after coughing fit. Pt was able to supress her urinary urge with urge deference technique for entire treatment. Her PF strength shows variable areas of weakness without pessary. No c/o lower abdominal pain noted without pessary; therefore pessary might be a reason for her lower abdominal pain. Her R leg measures longer than L (83 cm R; 81.5 cm L). L sciatic pain was reproduced with sacral fascia mob into extension, and minimized (not fully resolved) with MHP duiring Kegel ex's. Physical Therapy Plan Frequency and Duration Frequency of Treatment 1x/Week Duration of treatment (weeks) 12 Plan of Care Start Date 08/26/24 Plan of Care End Date 11/18/24 Next Visit Focus/Plan Next Note Type Treatment Note Next Visit Plan Next: Assess for pelvic obliquity (rotated or flared innominate), initiate core pressure management for proper coordinated breathing with transfers and body mechanics and ADL training. Start very gentle fascial mob around sacrum. Ther Ex: Progress strengthening: Kegel on wedge without use of substitute muscles, add L hip strengthening (ER, ext), LE roll in/out w/core stab, & improve hip IR and trunk rot mobility, PF/core (rot) strengthening. STM/stretch: L Glut med/ Piriformis to reduce sciatic pain, ?Gentle sacral balancing only if can be done w/o increasing L Sciatic pain. Pt education in self care pain mgmt (hot, cold, hot/cold) POC: Pt education & self care management, manual therapy, therapeutic exercises, therapeutic activities, and neuromuscular reeducation.
--- NOTE | 2024-09-09 15:54 | PT.OTN ---
Current Diagnoses Sciatica, left side (09/09/24) Muscle weakness (generalized) (09/09/24) Other female genital prolapse (09/09/24) Pelvic and perineal pain (09/09/24) Flatulence (09/09/24) Physical Therapy Treatment Note PT-OP-A Visit Information Start: 08/16/24 18:13 Freq: Status: Active Protocol: Document 09/09/24 13:47 LRN (Rec: 09/09/24 14:35 LRN [id number]) Out-Patient Physical Therapy Visit Information Visit Information Visit Type Treatment Note Visit Start Time 13:47 Visit Stop Time 14:33 Visit Number 3 Evaluation Information Evaluation Date 08/26/24 Precautions Precautions LATEX ALLERGY, osteoporosis . 1 leg longer as told by chiropractor. PT-OP-B Current Condition Start: 08/16/24 18:13 Freq: Status: Active Protocol: Document 08/26/24 14:37 LRN (Rec: 08/26/24 15:36 LRN [id number]) Current Condition History of Current Condition Onset Date 11/2023 Current Complaints With pessary, has pelvic pain in PF and Pelvic bowel/hip/ back pain History of Current Condition After coughing from a respiratory infection she began to have a cramping feeling in lower abdomen and felt excessive tissue in PF and very sore and uncomfortable, like raw tissue . Reports she has a rectocele, cystocele and uterine prolapse. She has had a pessary since 05/2024, and removes pessary once a week to be overnight without pessary. Uses Estradiol creme 2x/week . 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 Prior Treatments and Tests Chiropractic adjustments as needed for back/hip pain. Does yoga daily for 20 yrs. Treatment Goals Patient/Caregiver Goals Pt goals: - Improve PF strength to stop leaking, with coughing, sit<> stand, and urge. - Decrease Pelvic Pain dull ache (when pessary is in). - Decrease pelvic bowel pain - HEP. Personal Factors Other Personal Factors That May Effect Yoga 20 min/day, line dancing Therapy/Recovery 1x/wee,. Diagnosis of rectocele, cystocele and uterine prolapse , Hypothyroid, Currently having L Sciatic pain, R medial knee pain, and Pelvic Bowl pain. PT-OP-C Subjective Start: 08/16/24 18:13 Freq: Status: Active Protocol: Document 09/09/24 13:47 LRN (Rec: 09/09/24 14:35 LRN [id number]) OP-PT Subjective Patient Comments Patient Comments Had one incident walking into the house and wasn't able to control urge. Was able to not leak with sneeze. Pessary is out, she is not sure she is doing the Kegel correctly. PT-OP-I Pelvic Floor Start: 08/16/24 18:13 Freq: Status: Active Protocol: Document 09/09/24 13:47 LRN (Rec: 09/09/24 14:35 LRN [id number]) Pelvic Floor Assessment Pelvic Clock Pelvic Clock Other No pain around the clock. Prolapse Cystocele Grade 3 Rectocele Grade 3 Comments Pelvic Floor Comments Pessary removed for cleaning this morning. Pt able to draw up and in with Kegel after training. PT-OP-J Posture/Palpation/Skin Start: 08/16/24 18:13 Freq: Status: Active Protocol: Document 09/09/24 13:47 LRN (Rec: 09/09/24 14:35 LRN [id number]) Palpation Assessment Location Leg length Palpation Location Medial malleolus Palpation Details Supine: slight longer R LE at start of therapy PT-OP-K Range of Motion Start: 08/16/24 18:13 Freq: Status: Active Protocol: Document 08/26/24 14:37 LRN (Rec: 08/26/24 15:36 LRN [id number]) Lumbar Spine Range of Motion Lumbar Spine Active Degrees Testing Position Standing Flexion 110 Extension 15 Rotation Left 20 Rotation Right 20 Lateral Flexion Left 10 Lateral Flexion Right 10 Hip Goniometric Range of Motion Hip Right Passive Testing Position Supine Internal Rotation 35 External Rotation 50 Left Passive Testing Position Supine Internal Rotation 35 External Rotation 50 PT-OP-M Strength Start: 08/16/24 18:13 Freq: Status: Active Protocol: Document 08/26/24 14:37 LRN (Rec: 08/26/24 15:36 LRN [id number]) Hip Strength Hip Manual Muscle Testing Right Flexion (L2) 4 Good Extension (S1) 3 Fair Comments Strength is 5/5 except as indicated above. Left Extension (S1) 3 Fair External Rotation 4+ Good+ Comments Strength is 5/5 except as indicated above. PT-OP-Q Treatments Start: 08/16/24 18:13 Freq: Status: Active Protocol: Document 09/09/24 13:47 LRN (Rec: 09/09/24 14:35 N [id number]) Therapeutic Exercises Supine Exercises Phase I SIJ dysfunction Supine Exercise Name Benjamín hip AD>Resisted R hip Ext > Bridging> DKTC>TA tightening. Reps/Minutes Each activity 8-10 times. Comments Pt needed training to do TA tightening correctly, cuing & assist given thru Hips elevated/Isolated Kegel Supine Exercise Name Long Hold - coordinated contraction Reps/Minutes 3' Comments Pt finds easier to contract on exhale. 5-6 reps PF weakens. Isolated Kegel Supine Exercise Name 1-2 sec Kegels, coordinating contraction to get a lift & with bridge Reps/Minutes 8' Comments Constant V cuing throughout ex per digital palpation assessment. Longhold Kegel Supine Exercise Name Long hold with coordinated contraction with breath Reps/Minutes 10 SH Comments Constant V cuing throughout ex per digital palpation assessment. Therapeutic Activity Therapeutic Activity Transfers coordinating breath Name Pt education and training to coordinate breath w/transfer Reps/Minutes 8' Comments sup<>sit<>stand x 3. Pt needed constant v cuing. Manual Therapy Treatment Soft Tissue Mobilization R innominate Body Location Correction for an R anterior rot innominate Mobilization Type Other Body Position Supine Self-Care/Home Management Treatment Activities Self-Care/Home Management Activities Issued handout for transfers with coordinated breath & Kegel. Issued HEP: TA tightening with breath and also with Kegel. PT-OP-T Assessment and Plan Start: 08/16/24 18:13 Freq: Status: Active Protocol: Document 09/09/24 13:47 LRN (Rec: 09/09/24 14:35 [facility] [id number]) Physical Therapy Assessment Goals Four Impairment Intermittent L Sciatic/Keyon Pelvic bowel pain, 10 Patent Law Specialist Goal (LTG) Improve pt posture, strengthen core to reduce onset or eliminate intermittent L sciatic pain. 09/09/24: Initiated core strengthening w/TA tightening/ PF/exhale. LTG Duration 11/18/24 progressed 09/09/24 Three Impairment Pelvic pain (dull ache, /10 when pessary is in) Short Term Goal (STG) Strengthen PF, reducing pelvic pain to intemittent when pessary is in. STG Duration 10/07/24 Patent Law Specialist Goal (LTG) Improve PF strength to decrease or eliminate pelvic pain. LTG Duration 11/18/24 Two Impairment Stress urinary leakage Short Term Goal (STG) Pt will be educated and able to use urge deference technique to eliminate urinary leakage with a strong urge. 09/02/24: Used Urge deference technique to defer need to urinate with a strong urge through therapy session. STG Duration 10/07/24 progressed 09/02/24 Jail Goal (LTG) Improve PF strength to stop urinary leakage 90-100% of the time, with coughing, sit<> stand. LTG Duration 11/18/24 One Impairment Pt lacks an independent self care HEP. Short Term Goal (STG) Pt will be educated and able to demonstrate transfers to lessen core abdominal pressure . 09/09/24: Pt educated in core pressure mgmt with transfer. STG Duration 10/07/24 progressed 09/09/24 (pt to demonstrate) Jail Goal (LTG) Pt will be independent in a self care HEP for PF strengthening. : HEP Kegel ex's on 08/26/24. HEP: TA/PF contraction w/breath. LTG Duration 11/18/24 progressed 09/09/24 Assessment Summary Assessment Pt is a 77 yo female w/pessary , dx'd w/cystocele, rectocele, uterine prolapse due PF weakness, also with pelvic & L sciatic pain (mechanism of injury was a coughing fit). Lower abdominal pain possibly from pessary. L sciatic pain was reproduced with sacral fascia mob into extension, and minimized (not fully resolved ) with MHP. Pt's leg length measured long on R. Today, her R innominate was anteriorly rotated slightly and her leg length appeared corrrected after contract relax JMT. Physical Therapy Plan Frequency and Duration Frequency of Treatment 1x/Week Duration of treatment (weeks) 12 Plan of Care Start Date 08/26/24 Plan of Care End Date 11/18/24 Next Visit Focus/Plan Next Note Type Treatment Note Next Visit Plan Next: Review Bladder dairy and discussed fluid intake (AM /PM), bowel movement frequency , & nighttime voiding frequency. Assess for pelvic obliquity (rotated or flared innominate) & recheck PF strength and endurance. Assess response to training of core pressure management for proper coordinated breathing with transfers; training with body mechanics and ADLs. Start very gentle fascial mob around sacrum. Ther Ex: Progress strengthening: Kegel on wedge without use of substitute muscles, add L hip strengthening (ER, ext), LE roll in/out w/core stab, & improve hip IR and trunk rot mobility, PF/core (rot) strengthening. STM/stretch: L Glut med/ Piriformis to reduce sciatic pain, ?Gentle sacral balancing only if can be done w/o increasing L Sciatic pain. Pt education in self care pain mgmt (hot, cold, hot/cold) POC: Pt education & self care management, manual therapy, therapeutic exercises, therapeutic activities, and neuromuscular reeducation.
--- NOTE | 2024-09-16 17:40 | PT.OTN ---
Current Diagnoses Sciatica, left side (09/16/24) Muscle weakness (generalized) (09/16/24) Other female genital prolapse (09/16/24) Pelvic and perineal pain (09/16/24) Flatulence (09/16/24) Physical Therapy Treatment Note PT-OP-A Visit Information Start: 08/16/24 18:13 Freq: Status: Active Protocol: Document 09/16/24 13:51 LRN (Rec: 09/16/24 14:33 LRN [id number]) Out-Patient Physical Therapy Visit Information Visit Information Visit Type Treatment Note Visit Start Time 13:51 Visit Stop Time 14:31 Visit Number 4 PT-OP-B Current Condition Start: 08/16/24 18:13 Freq: Status: Active Protocol: Document 08/26/24 14:37 LRN (Rec: 08/26/24 15:36 LRN [id number]) Current Condition History of Current Condition Onset Date 11/2023 Current Complaints With pessary, has pelvic pain in PF and Pelvic bowel/hip/ back pain History of Current Condition After coughing from a respiratory infection she began to have a cramping feeling in lower abdomen and felt excessive tissue in PF and very sore and uncomfortable, like raw tissue . Reports she has a rectocele, cystocele and uterine prolapse. She has had a pessary since 05/2024, and removes pessary once a week to be overnight without pessary. Uses Estradiol creme 2x/week . 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 Prior Treatments and Tests Chiropractic adjustments as needed for back/hip pain. Does yoga daily for 20 yrs. Treatment Goals Patient/Caregiver Goals Pt goals: - Improve PF strength to stop leaking, with coughing, sit<> stand, and urge. - Decrease Pelvic Pain dull ache (when pessary is in). - Decrease pelvic bowel pain - HEP. Personal Factors Other Personal Factors That May Effect Yoga 20 min/day, line dancing Therapy/Recovery 1x/wee,. Diagnosis of rectocele, cystocele and uterine prolapse , Hypothyroid, Currently having L Sciatic pain, R medial knee pain, and Pelvic Bowl pain. PT-OP-C Subjective Start: 08/16/24 18:13 Freq: Status: Active Protocol: Document 09/16/24 13:51 LRN (Rec: 09/16/24 14:33 LRN [id number]) OP-PT Subjective Patient Comments Patient Comments States 5 days ago (thu morning ) she was sitting on the toilet after having BM felt intense sharp pain in R trunk under the rib and down the trunk but the pain was mostly under the rib where the gal bladder sits. When she breaths the pain is under the diaphragm on the R side. No pain with lying, standing; on sides it hurts L sidelie is worse than R sidelie. Doing ex's faithfully everyday. Ex' s do not cause pain, breathing in/out causes pain. With the deep breathing, initially the small shallow breaths caused pain. Lying straight back does not hurt. PT-OP-I Pelvic Floor Start: 08/16/24 18:13 Freq: Status: Active Protocol: Document 09/09/24 13:47 LRN (Rec: 09/09/24 14:35 LRN [id number]) Pelvic Floor Assessment Pelvic Clock Pelvic Clock Other No pain around the clock. Prolapse Cystocele Grade 3 Rectocele Grade 3 Comments Pelvic Floor Comments Pessary removed for cleaning this morning. Pt able to draw up and in with Kegel after training. PT-OP-J Posture/Palpation/Skin Start: 08/16/24 18:13 Freq: Status: Active Protocol: Document 09/09/24 13:47 LRN (Rec: 09/09/24 14:35 LRN [id number]) Palpation Assessment Location Leg length Palpation Location Medial malleolus Palpation Details Supine: slight longer R LE at start of therapy PT-OP-K Range of Motion Start: 08/16/24 18:13 Freq: Status: Active Protocol: Document 08/26/24 14:37 LRN (Rec: 08/26/24 15:36 LRN [id number]) Lumbar Spine Range of Motion Lumbar Spine Active Degrees Testing Position Standing Flexion 110 Extension 15 Rotation Left 20 Rotation Right 20 Lateral Flexion Left 10 Lateral Flexion Right 10 Hip Goniometric Range of Motion Hip Right Passive Testing Position Supine Internal Rotation 35 External Rotation 50 Left Passive Testing Position Supine Internal Rotation 35 External Rotation 50 PT-OP-M Strength Start: 08/16/24 18:13 Freq: Status: Active Protocol: Document 08/26/24 14:37 LRN (Rec: 08/26/24 15:36 LRN [id number]) Hip Strength Hip Manual Muscle Testing Right Flexion (L2) 4 Good Extension (S1) 3 Fair Comments Strength is 5/5 except as indicated above. Left Extension (S1) 3 Fair External Rotation 4+ Good+ Comments Strength is 5/5 except as indicated above. PT-OP-Q Treatments Start: 08/16/24 18:13 Freq: Status: Active Protocol: Document 09/16/24 13:51 LRN (Rec: 09/16/24 14:33 LRN [id number]) Therapeutic Exercises Supine Exercises Kegel/Squeeze/TA Supine Exercise Name Hips on Pillow, Pillow squeeze , TA in neutral spine Equipment Used Pillow x 2 Reps/Minutes 10 SH/20 SR x 10 Comments Pt took rest time to prevent R trunk from spasm onset Kegel/Squeeze Supine Exercise Name Hips on Pillow, Pillow squeeze w/Kegel/TA Equipment Used Pillow x2 Reps/Minutes 10 SH (3 breaths)/20 SR x 10 Comments Extra time needed due to initial onset of R trunk feeling of ms spasm TA/Kegel Reps/Minutes 5 SH , 6', and 5' 20x Comments No abdominal spasm holding TA for 20 secs Longhold Kegel Supine Exercise Name Kegel hold Reps/Minutes 5 SH x 20 Manual Therapy Treatment Soft Tissue Mobilization Abdomen Body Location R lateral trunk stretching cephalad-caudal direction, check transversely Mobilization Type Sustained Pressure Intensity/Depth Moderate Body Position Supine Self-Care/Home Management Treatment Activities Self-Care/Home Management Activities Added to previously issued HEP : Kegel/ADD (pillow squeeze)/ NS with TA. & Kegel/BilBKFO/NS with TA/Lv 2 TB PT-OP-T Assessment and Plan Start: 08/16/24 18:13 Freq: Status: Active Protocol: Document 09/16/24 13:51 LRN (Rec: 09/16/24 14:33 LRN [id number]) Physical Therapy Assessment Goals Four Impairment Intermittent L Sciatic/Keyon Pelvic bowel pain, 3/10 Mold Washer Goal (LTG) Improve pt posture, strengthen core to reduce onset or eliminate intermittent L sciatic pain. 09/09/24: Initiated core strengthening w/TA tightening/ PF/exhale. 09/16/24: HEP: Kegel/ADD ( pillow squeeze)/NS with TA. & Kegel/BilBKFO/NS with TA/Lv 2 TB LTG Duration 11/18/24 progressed 09/16/24 Three Impairment Pelvic pain (dull ache, 3/10 when pessary is in) Short Term Goal (STG) Strengthen PF, reducing pelvic pain to intemittent when pessary is in. STG Duration 10/07/24 Senior Care Goal (LTG) Improve PF strength to decrease or eliminate pelvic pain. LTG Duration 11/18/24 Two Impairment Stress urinary leakage Short Term Goal (STG) Pt will be educated and able to use urge deference technique to eliminate urinary leakage with a strong urge. 09/02/24: Used Urge deference technique to defer need to urinate with a strong urge through therapy session. STG Duration 10/07/24 progressed 09/02/24 Senior Care Goal (LTG) Improve PF strength to stop urinary leakage 90-100% of the time, with coughing, sit<> stand. LTG Duration 11/18/24 One Impairment Pt lacks an independent self care HEP. Short Term Goal (STG) Pt will be educated and able to demonstrate transfers to lessen core abdominal pressure . 09/09/24: Pt educated in core pressure mgmt with transfer. 09/16/24: Pt demonstrated transfer on/off plinth with good core pressure mgmt. STG Duration 10/07/24 (09/16/24: MET GOAL ) Senior Care Goal (LTG) Pt will be independent in a self care HEP for PF strengthening. : HEP Kegel ex's on 08/26/24. HEP: TA/PF contraction w/breath. 09/16/24: HEP (added to previously issued HEP handout) : Kegel/ADD (pillow squeeze)/NS with TA. & Kegel/BilBKFO/NS with TA/Lv 2 TB LTG Duration 11/18/24 progressed 09/16/24 Assessment Summary Assessment Pt R lateral trunk didn't present with palpable pain. Pt noted she was getting better. She indicated location of pain today as being in line with her ascending colon. No palpable pain at diaphragm attachment to rib. Did not do bladder diary review due to focus on avoiding R lateral abdominal pain onset. No pelvic obliquity noted. Pt demonstrates good knowldege of core pressure mgmt with transfers and has noted less pressure on bladder in middle of the night wakenings. Physical Therapy Plan Frequency and Duration Frequency of Treatment 1x/Week Duration of treatment (weeks) 12 Plan of Care Start Date 08/26/24 Plan of Care End Date 11/18/24 Next Visit Focus/Plan Next Note Type Treatment Note Next Visit Plan Next: Review her initial Bladder dairy and discussed fluid intake (AM/PM), bowel movement frequency, & nighttime voiding frequency. Recheck PF strength and endurance. Assess for pelvic obliquity (rotated or flared innominate). Educate: core pressure management for proper coordinated breathing with body mechanics and ADLs. Manal: Gentle facial mob (L Glut med/Piriformis) around sacrum for sciatic pain. Ther Ex: Progress strengthening: Kegel on wedge without use of substitute muscles, add L hip strengthening (ER, ext), LE roll in/out w/core stab, & improve hip IR and trunk rot mobility, PF/core (rot) strengthening. Pt education in self care pain mgmt (hot, cold, hot/cold) POC: Pt education & self care management, manual therapy, therapeutic exercises, therapeutic activities, and neuromuscular reeducation.
--- NOTE | 2024-09-23 15:09 | PT.OTN ---
Current Diagnoses Sciatica, left side (09/23/24) Muscle weakness (generalized) (09/23/24) Other female genital prolapse (09/23/24) Pelvic and perineal pain (09/23/24) Flatulence (09/23/24) Physical Therapy Treatment Note PT-OP-A Visit Information Start: 08/16/24 18:13 Freq: Status: Active Protocol: Document 09/23/24 13:51 LRN (Rec: 09/23/24 15:09 LRN [id number]) Out-Patient Physical Therapy Visit Information Visit Information Visit Type Treatment Note Visit Start Time 13:52 Visit Stop Time 14:47 Visit Number 5 Evaluation Information Evaluation Date 08/26/24 Precautions Precautions LATEX ALLERGY, osteoporosis . 1 leg longer as told by chiropractor. PT-OP-B Current Condition Start: 08/16/24 18:13 Freq: Status: Active Protocol: Document 08/26/24 14:37 LRN (Rec: 08/26/24 15:36 LRN [id number]) Current Condition History of Current Condition Onset Date 11/2023 Current Complaints With pessary, has pelvic pain in PF and Pelvic bowel/hip/ back pain History of Current Condition After coughing from a respiratory infection she began to have a cramping feeling in lower abdomen and felt excessive tissue in PF and very sore and uncomfortable, like raw tissue . Reports she has a rectocele, cystocele and uterine prolapse. She has had a pessary since 05/2024, and removes pessary once a week to be overnight without pessary. Uses Estradiol creme 2x/week . Pt with [place] accent, is retired and lives with spouse , she has DA in [place] who is a nurse and DA in [place] who is a retired [employer]. Prior Treatments and Tests Chiropractic adjustments as needed for back/hip pain. Does yoga daily for 20 yrs. Treatment Goals Patient/Caregiver Goals Pt goals: - Improve PF strength to stop leaking, with coughing, sit<> stand, and urge. - Decrease Pelvic Pain dull ache (when pessary is in). - Decrease pelvic bowel pain - HEP. Personal Factors Other Personal Factors That May Effect Yoga 20 min/day, line dancing Therapy/Recovery 1x/wee,. Diagnosis of rectocele, cystocele and uterine prolapse , Hypothyroid, Currently having L Sciatic pain, R medial knee pain, and Pelvic Bowl pain. PT-OP-C Subjective Start: 08/16/24 18:13 Freq: Status: Active Protocol: Document 09/23/24 13:51 LRN (Rec: 09/23/24 15:09 LRN [id number]) OP-PT Subjective Patient Comments Patient Comments States no incidence of L sciatic pain has gone since after the 2nd session. PT-OP-I Pelvic Floor Start: 08/16/24 18:13 Freq: Status: Active Protocol: Document 09/23/24 13:51 LRN (Rec: 09/23/24 15:09 LRN [id number]) Pelvic Floor Assessment Contraction Ability Manual Muscle Testing Left 1 Manual Muscle Testing Right 3 Manual Muscle Testing Anterior 1 Manual Muscle Testing Posterior 3 Muscle Endurance (Seconds) 2 Number of Quick Contractions In 10 3 Seconds Comments Pelvic Floor Comments L Lateral wall (1-5 of PF clock) and 11 of PF clock strength is 1-2 sec holds, R Lateral wall is 10 sec holds except at 11 PF clock. Quick contractions are 2-3/5 except at 9 of PF clock is 0/5 . PT-OP-J Posture/Palpation/Skin Start: 08/16/24 18:13 Freq: Status: Active Protocol: Document 09/09/24 13:47 LRN (Rec: 09/09/24 14:35 LRN [id number]) Palpation Assessment Location Leg length Palpation Location Medial malleolus Palpation Details Supine: slight longer R LE at start of therapy PT-OP-K Range of Motion Start: 08/16/24 18:13 Freq: Status: Active Protocol: Document 08/26/24 14:37 LRN (Rec: 08/26/24 15:36 LRN [id number]) Lumbar Spine Range of Motion Lumbar Spine Active Degrees Testing Position Standing Flexion 110 Extension 15 Rotation Left 20 Rotation Right 20 Lateral Flexion Left 10 Lateral Flexion Right 10 Hip Goniometric Range of Motion Hip Right Passive Testing Position Supine Internal Rotation 35 External Rotation 50 Left Passive Testing Position Supine Internal Rotation 35 External Rotation 50 PT-OP-M Strength Start: 08/16/24 18:13 Freq: Status: Active Protocol: Document 08/26/24 14:37 LRN (Rec: 08/26/24 15:36 LRN [id number]) Hip Strength Hip Manual Muscle Testing Right Flexion (L2) 4 Good Extension (S1) 3 Fair Comments Strength is 5/5 except as indicated above. Left Extension (S1) 3 Fair External Rotation 4+ Good+ Comments Strength is 5/5 except as indicated above. PT-OP-Q Treatments Start: 08/16/24 18:13 Freq: Status: Active Protocol: Document 09/23/24 13:51 LRN (Rec: 09/23/24 15:09 LRN [id number]) Therapeutic Exercises Supine Exercises Kegel/L BKFO Supine Exercise Name Quick and Long hold Kegels w/ TA Side left Reps/Minutes 5' Kegel/Squeeze/TA Supine Exercise Name Hips on Pillow, Pillow squeeze , TA in neutral spine Equipment Used Ball, Pillow under hips Reps/Minutes 10 SH/20 SR x 10 Comments Pt took rest time to prevent R trunk from spasm onset Kegel/Squeeze Supine Exercise Name Hips on Pillow, Pillow squeeze w/Kegel/TA Equipment Used Ball, Pillow under hips Reps/Minutes 1 SH/2 SR x 10 & 10 SH (3 breaths)/20 SR x 10 Comments Extra time needed due to initial onset of R trunk feeling of ms spasm TA/Kegel Equipment Used Pillow under hips Reps/Minutes 10 SH/20 SR x 10 Comments No abdominal spasm holding TA for 20 secs Longhold Kegel Supine Exercise Name Manual cuing w/Longhold kegels Comments PF strength assessed Quick Kegel Supine Exercise Name Manual cuing with quick kegels . Comments PF strength assessed Self-Care/Home Management Treatment Education Other Education Reviewed Bladder dairy and discussed fluid intake (AM/PM) - pt to try tea vs decaf coffee in order to reduce voiding hourly after coffee and to reduce nighttime voiding; bowel movement frequency (daily), & nighttime voiding frequency (1x/night). Educated briefly in proper body mechanics for ADLs and Body mechanics basics while coordinating breath. Activities Self-Care/Home Management Activities Added after verbal review, HEP : Sidelye hip AD w/Quick & Longhold Kegel/breath, and standing hip AD w/Quick & Longhold Kegel/breath, (L>R). Progressed lumbopelvic stab program for HEP: bracing w/L BKFO. PT-OP-T Assessment and Plan Start: 08/16/24 18:13 Freq: Status: Active Protocol: Document 09/23/24 13:51 LRN (Rec: 09/23/24 15:09 LRN [id number]) Physical Therapy Assessment Goals Four Impairment Intermittent L Sciatic/Keyon Pelvic bowel pain, 3/10 Skilled Nursing Goal (LTG) Improve pt posture, strengthen core to reduce onset or eliminate intermittent L sciatic pain. 09/09/24: Initiated core strengthening w/TA tightening/ PF/exhale. 09/16/24: HEP: Kegel/ADD ( pillow squeeze)/NS with TA. & Kegel/BilBKFO/NS with TA/Lv 2 TB. 09/23/24: No L Sciatic pain or pelvic bowel pain. LTG Duration 11/18/24 09/23/24 Met goal for eliminated L sciatic pn Three Impairment Pelvic pain (dull ache, /10 when pessary is in) Short Term Goal (STG) Strengthen PF, reducing pelvic pain to intemittent when pessary is in. 09/23/24: No c/o pelvic pain with pessary in. STG Duration 10/07/24 (09/23/24: MET GOAL) Skilled Nursing Goal (LTG) Improve PF strength to decrease or eliminate pelvic pain. 09/23/24: No c/o pelvic pain with pessary in. LTG Duration 11/18/24 (09/23/24: MET GOAL) Two Impairment Stress urinary leakage Short Term Goal (STG) Pt will be educated and able to use urge deference technique to eliminate urinary leakage with a strong urge. 09/02/24: Used Urge deference technique to defer need to urinate with a strong urge through therapy session. 09/23/24: Sometimes leaks with a strong urge, 15-20% improvement, mostly when standing. Leakage happens after prolonged sitting. Rarely leaks with a cough, only when caught by surprise. STG Duration 10/07/24 progressed 09/23/24 Jack Setter Goal (LTG) Improve PF strength to stop urinary leakage 90-100% of the time, with coughing, sit<> stand. 09/23/24: Sometimes leaks with a strong urge, 15-20% improvement, mostly when standing. Leakage happens after prolonged sitting. Rarely leaks with a cough, only when caught by surprise. LTG Duration 11/18/24 progressing 09/23/24 . One Impairment Pt lacks an independent self care HEP. Short Term Goal (STG) Pt will be educated and able to demonstrate transfers to lessen core abdominal pressure . 09/09/24: Pt educated in core pressure mgmt with transfer. 09/16/24: Pt demonstrated transfer on/off plinth with good core pressure mgmt. STG Duration 10/07/24 (09/16/24: MET GOAL ) Skilled Nursing Goal (LTG) Pt will be independent in a self care HEP for PF strengthening. : HEP Kegel ex's on 08/26/24. HEP: TA/PF contraction w/breath. 09/16/24: HEP (added to previously issued HEP handout) : Kegel/ADD (pillow squeeze)/NS with TA. & Kegel/BilBKFO/NS with TA/Lv 2 TB. 09/18/24: HEP: Sidelye hip AD w/Quick & Longhold Kegel/ breath, and standing hip AD w/ Quick & Longhold Kegel/breath, (L>R). Progressed lumbopelvic stab program for HEP: bracing w/L BKFO. LTG Duration 11/18/24 progressed 09/23/24 Assessment Summary Assessment Pt improving in symptoms. Pt' s L sciatic pain and pelvic pain has resolved since sacral balancing and with PF strengthening ex's. She has urinary leakage with sit<> stand, mostly after sitting for prolonged period. Pt appear to have insignifcant short L leg, otherwise normal pelvic positioning; therefore no further JMT needed at this time. Pt therapy to focus on improving PF strength (L side ) and anteriorly bilaterally; and ability for quick contractions around the PF clock. Physical Therapy Plan Frequency and Duration Frequency of Treatment 1x/Week Duration of treatment (weeks) 12 Plan of Care Start Date 08/26/24 Plan of Care End Date 11/18/24 Next Visit Focus/Plan Next Note Type Treatment Note Next Visit Plan Next: focus on PF strengthening (L side) and anteriorly bilaterally; and improve quick contractions around the PF clock. Review as needed: core pressure management for proper coordinated breathing with body mechanics and ADLs with quick kegel. Ther Ex: Add L hip strengthening (ER, ext), LE roll in/out w/core stab, & improve hip IR and trunk rot mobility, PF/core (rot) strengthening, progressing strengthening of Kegel on wedge without use of substitute muscles.
--- NOTE | 2024-10-17 12:47 | PT.OTN ---
Current Diagnoses Sciatica, left side (10/17/24) Muscle weakness (generalized) (10/17/24) Other female genital prolapse (10/17/24) Pelvic and perineal pain (10/17/24) Flatulence (10/17/24) Physical Therapy Treatment Note PT-OP-A Visit Information Start: 08/16/24 18:13 Freq: Status: Active Protocol: Document 10/17/24 09:54 LRN (Rec: 10/17/24 10:34 LRN [id number]) Out-Patient Physical Therapy Visit Information Visit Information Visit Type Treatment Note Visit Start Time 09:54 Visit Stop Time 10:33 Visit Number 6 Evaluation Information Evaluation Date 08/26/24 Precautions Precautions LATEX ALLERGY, osteoporosis . 1 leg longer as told by chiropractor. PT-OP-B Current Condition Start: 08/16/24 18:13 Freq: Status: Active Protocol: Document 08/26/24 14:37 LRN (Rec: 08/26/24 15:36 LRN [id number]) Current Condition History of Current Condition Onset Date 11/2023 Current Complaints With pessary, has pelvic pain in PF and Pelvic bowel/hip/ back pain History of Current Condition After coughing from a respiratory infection she began to have a cramping feeling in lower abdomen and felt excessive tissue in PF and very sore and uncomfortable, like raw tissue . Reports she has a rectocele, cystocele and uterine prolapse. She has had a pessary since 05/2024, and removes pessary once a week to be overnight without pessary. Uses Estradiol creme 2x/week . 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 Prior Treatments and Tests Chiropractic adjustments as needed for back/hip pain. Does yoga daily for 20 yrs. Treatment Goals Patient/Caregiver Goals Pt goals: - Improve PF strength to stop leaking, with coughing, sit<> stand, and urge. - Decrease Pelvic Pain dull ache (when pessary is in). - Decrease pelvic bowel pain - HEP. Personal Factors Other Personal Factors That May Effect Yoga 20 min/day, line dancing Therapy/Recovery 1x/wee,. Diagnosis of rectocele, cystocele and uterine prolapse , Hypothyroid, Currently having L Sciatic pain, R medial knee pain, and Pelvic Bowl pain. PT-OP-C Subjective Start: 08/16/24 18:13 Freq: Status: Active Protocol: Document 10/17/24 09:54 LRN (Rec: 10/17/24 10:34 LRN [id number]) OP-PT Subjective Patient Comments Patient Comments Has found that the volume of caffeine in the morning is what was making her have urgency, not the coffee. Has been doing the ex's daily and hasn't noticed a difference. Biggest difference is when pessary is in or pessary is out. Pesssary in, doesnt' feel like she is getting as good of a PF contraction. L sciatic pain hasn't occurred, but has been feeling the last week that it is on the edge with an increase in activity and exercise this past week. OP-PT Pain Assessment Location L Sciatic-like pain Pain Location Details L Sciatic pain. Intensity 1 Scale Used Numeric (0 - 10) PT-OP-I Pelvic Floor Start: 08/16/24 18:13 Freq: Status: Active Protocol: Document 09/23/24 13:51 LRN (Rec: 09/23/24 15:09 LRN [id number]) Pelvic Floor Assessment Contraction Ability Manual Muscle Testing Left 1 Manual Muscle Testing Right 3 Manual Muscle Testing Anterior 1 Manual Muscle Testing Posterior 3 Muscle Endurance (Seconds) 2 Number of Quick Contractions In 10 3 Seconds Comments Pelvic Floor Comments L Lateral wall (1-5 of PF clock) and 11 of PF clock strength is 1-2 sec holds, R Lateral wall is 10 sec holds except at 11 PF clock. Quick contractions are 2-3/5 except at 9 of PF clock is 0/5 . PT-OP-J Posture/Palpation/Skin Start: 08/16/24 18:13 Freq: Status: Active Protocol: Document 09/09/24 13:47 LRN (Rec: 09/09/24 14:35 LRN [id number]) Palpation Assessment Location Leg length Palpation Location Medial malleolus Palpation Details Supine: slight longer R LE at start of therapy PT-OP-K Range of Motion Start: 08/16/24 18:13 Freq: Status: Active Protocol: Document 08/26/24 14:37 LRN (Rec: 08/26/24 15:36 LRN [id number]) Lumbar Spine Range of Motion Lumbar Spine Active Degrees Testing Position Standing Flexion 110 Extension 15 Rotation Left 20 Rotation Right 20 Lateral Flexion Left 10 Lateral Flexion Right 10 Hip Goniometric Range of Motion Hip Right Passive Testing Position Supine Internal Rotation 35 External Rotation 50 Left Passive Testing Position Supine Internal Rotation 35 External Rotation 50 PT-OP-M Strength Start: 08/16/24 18:13 Freq: Status: Active Protocol: Document 08/26/24 14:37 LRN (Rec: 08/26/24 15:36 LRN [id number]) Hip Strength Hip Manual Muscle Testing Right Flexion (L2) 4 Good Extension (S1) 3 Fair Comments Strength is 5/5 except as indicated above. Left Extension (S1) 3 Fair External Rotation 4+ Good+ Comments Strength is 5/5 except as indicated above. PT-OP-Q Treatments Start: 08/16/24 18:13 Freq: Status: Active Protocol: Document 10/17/24 09:54 LRN (Rec: 10/17/24 10:34 LRN [id number]) Therapeutic Exercises Supine Exercises Core strengthening Supine Exercise Name Single leg (SL) March up and SL march down Reps/Minutes 8' Comments Extra time for training and for education on progressive program. Kegel/BKFO Side left Reps/Minutes 3' Kegel/Bridge Supine Exercise Name Kegel/Bridge Reps/Minutes 5' Kegel/L BKFO Supine Exercise Name Quick and Long hold Kegels w/ TA Side left Equipment Used Lev 2 TB Reps/Minutes 5' Kegel/Squeeze/TA Supine Exercise Name Hips on Pillow, Pillow squeeze , TA in neutral spine Equipment Used Ball, Pillow under hips Reps/Minutes 10 SH/20 SR x 10 Comments Pt took rest time to prevent R trunk from spasm onset Sidelying Exercises Kegel/TA/Kegel/Reverse Clamshell Sidelying Exercise Name Kegel hold through 10 reps Side left Reps/Minutes 4' Comments Extra time taken for core stab trng and Kegel through lifts for endurance Kegel/TA/Clamshell Sidelying Exercise Name Kegel hold through 10 reps Side left Reps/Minutes 4' Therapeutic Activity Therapeutic Activity Transfers coordinating breath Name Reviewed Reps/Minutes 5' Self-Care/Home Management Treatment Activities Self-Care/Home Management Activities Issued & reviewed HEP: self care: Lower abdominal progression. PT-OP-T Assessment and Plan Start: 08/16/24 18:13 Freq: Status: Active Protocol: Document 10/17/24 09:54 LRN (Rec: 10/17/24 10:34 LRN [id number]) Physical Therapy Assessment Goals Four Impairment Intermittent L Sciatic/Keyon Pelvic bowel pain, 3/10 Skilled Nursing Goal (LTG) Improve pt posture, strengthen core to reduce onset or eliminate intermittent L sciatic pain. 09/09/24: Initiated core strengthening w/TA tightening/ PF/exhale. 09/16/24: HEP: Kegel/ADD ( pillow squeeze)/NS with TA. & Kegel/BilBKFO/NS with TA/Lv 2 TB. 09/23/24: No L Sciatic pain or pelvic bowel pain. 10/17/24: HEP: Lower abdominal progression program. LTG Duration 11/18/24 (10/17/24: MET GOAL) Three Impairment Pelvic pain (dull ache, 3/10 when pessary is in) Short Term Goal (STG) Strengthen PF, reducing pelvic pain to intemittent when pessary is in. 09/23/24: No c/o pelvic pain with pessary in. STG Duration 10/07/24 (09/23/24: MET GOAL) Skilled Nursing Goal (LTG) Improve PF strength to decrease or eliminate pelvic pain. 09/23/24: No c/o pelvic pain with pessary in. LTG Duration 11/18/24 (09/23/24: MET GOAL) Two Impairment Stress urinary leakage Short Term Goal (STG) Pt will be educated and able to use urge deference technique to eliminate urinary leakage with a strong urge. 09/02/24: Used Urge deference technique to defer need to urinate with a strong urge through therapy session. 09/23/24: Sometimes leaks with a strong urge, 15-20% improvement, mostly when standing. Leakage happens after prolonged sitting. Rarely leaks with a cough, only when caught by surprise. 10/17/24: Leaks with strong urge while trying to get the pants off, but working on using the urge technique to control the leakage as she identifies if does the urge technique then she can make it to the bathroom.. STG Duration 10/07/24 progressed 10/17/24 Critical Care Technician Goal (LTG) Improve PF strength to stop urinary leakage 90-100% of the time, with coughing, sit<> stand. 09/23/24: Sometimes leaks with a strong urge, 15-20% improvement, mostly when standing. Leakage happens after prolonged sitting. Rarely leaks with a cough, only when caught by surprise. 10/17/24: Leaks with strong urge, not yet doing urge deference technique on standing. LTG Duration 11/18/24 progressing 09/23/24 . One Impairment Pt lacks an independent self care HEP. Short Term Goal (STG) Pt will be educated and able to demonstrate transfers to lessen core abdominal pressure . 09/09/24: Pt educated in core pressure mgmt with transfer. 09/16/24: Pt demonstrated transfer on/off plinth with good core pressure mgmt. STG Duration 10/07/24 (09/16/24: MET GOAL ) Critical Care Technician Goal (LTG) Pt will be independent in a self care HEP for PF strengthening. : HEP Kegel ex's on 08/26/24. HEP: TA/PF contraction w/breath. 09/16/24: HEP (added to previously issued HEP handout) : Kegel/ADD (pillow squeeze)/NS with TA. & Kegel/BilBKFO/NS with TA/Lv 2 TB. 09/18/24: HEP: Sidelye hip AD w/Quick & Longhold Kegel/ breath, and standing hip AD w/ Quick & Longhold Kegel/breath, (L>R). Progressed lumbopelvic stab program for HEP: bracing w/L BKFO. LTG Duration 11/18/24 progressed 09/23/24 Assessment Summary Assessment Pt is a 77 yo female w/pessary , dx'd w/cystocele, rectocele, uterine prolapse due PF weakness. Her L sciatic pain has resolved. Status of lower abdominal pain and pelvic pain will be assessed next visit. Pt most Physical Therapy Plan Frequency and Duration Frequency of Treatment 1x/Week Duration of treatment (weeks) 12 Plan of Care Start Date 08/26/24 Plan of Care End Date 11/18/24 Next Visit Focus/Plan Next Note Type Treatment Note Next Visit Plan DC in 2 visits or by end of month. Next: Assess for resolution of lower abdominal pain and pelvic pain. Manual asses of PF strength for improvement on the L side. focus on JAMIL w/PF strengthening (L side) and anteriorly bilaterally; and improve quick contractions around the PF clock. Review as needed: core pressure management for proper coordinated breathing with body mechanics and ADLs with quick kegel. Ther Ex: Add L hip strengthening (ER, ext), LE roll in/out w/core stab, & improve hip IR and trunk rot mobility, PF/core (rot) strengthening, progressing strengthening of Kegel on wedge without use of substitute muscles.
--- NOTE | 2024-10-25 14:48 | PT.OTN ---
Current Diagnoses Sciatica, left side (10/25/24) Muscle weakness (generalized) (10/25/24) Other female genital prolapse (10/25/24) Pelvic and perineal pain (10/25/24) Flatulence (10/25/24) Physical Therapy Treatment Note PT-OP-A Visit Information Start: 08/16/24 18:13 Freq: Status: Active Protocol: Document 10/25/24 07:33 LRN (Rec: 10/25/24 08:19 LRN [id number]) Out-Patient Physical Therapy Visit Information Visit Information Visit Type Treatment Note Visit Start Time 07:33 Visit Stop Time 08:15 Visit Number 7 Evaluation Information Evaluation Date 08/26/24 Precautions Precautions LATEX ALLERGY, osteoporosis . 1 leg longer as told by chiropractor. PT-OP-B Current Condition Start: 08/16/24 18:13 Freq: Status: Active Protocol: Document 08/26/24 14:37 LRN (Rec: 08/26/24 15:36 LRN [id number]) Current Condition History of Current Condition Onset Date 11/2023 Current Complaints With pessary, has pelvic pain in PF and Pelvic bowel/hip/ back pain History of Current Condition After coughing from a respiratory infection she began to have a cramping feeling in lower abdomen and felt excessive tissue in PF and very sore and uncomfortable, like raw tissue . Reports she has a rectocele, cystocele and uterine prolapse. She has had a pessary since 05/2024, and removes pessary once a week to be overnight without pessary. Uses Estradiol creme 2x/week . Pt with [place] accent, is retired and lives with spouse , she has DA in [place] who is a nurse and DA in [place] who is a retired [employer]. Prior Treatments and Tests Chiropractic adjustments as needed for back/hip pain. Does yoga daily for 20 yrs. Treatment Goals Patient/Caregiver Goals Pt goals: - Improve PF strength to stop leaking, with coughing, sit<> stand, and urge. - Decrease Pelvic Pain dull ache (when pessary is in). - Decrease pelvic bowel pain - HEP. Personal Factors Other Personal Factors That May Effect Yoga 20 min/day, line dancing Therapy/Recovery 1x/wee,. Diagnosis of rectocele, cystocele and uterine prolapse , Hypothyroid, Currently having L Sciatic pain, R medial knee pain, and Pelvic Bowl pain. PT-OP-C Subjective Start: 08/16/24 18:13 Freq: Status: Active Protocol: Document 10/25/24 07:33 LRN (Rec: 10/25/24 08:19 LRN [id number]) OP-PT Subjective Patient Comments Patient Comments Not aware of any pelvic or LBP . OP-PT Pain Assessment Pain Assessment Grid Paper Pain Assessment Grid Completed No: Verbal assessment Location L Sciatic-like pain Pain Location Details Pain in sit bone radiating thru hip flexors > down lateral thigh to knee. Intensity 0 Pelvic Floor Pain Location Details Perineum Intensity 0 Scale Used Numeric (0 - 10) PT-OP-I Pelvic Floor Start: 08/16/24 18:13 Freq: Status: Active Protocol: Document 10/25/24 07:33 LRN (Rec: 10/25/24 08:19 LRN [id number]) Pelvic Floor Assessment Prolapse Cystocele Grade 3 Rectocele Grade 2 Perineal Descent Resting Absent Bearing Present Contraction Ability Voluntary Contraction Weak Voluntary Relaxation Moderate Manual Muscle Testing Left 2 Manual Muscle Testing Right 3 Manual Muscle Testing Anterior 1 Manual Muscle Testing Posterior 3 Muscle Endurance (Seconds) 10 Number of Quick Contractions In 10 6 Seconds PT-OP-J Posture/Palpation/Skin Start: 08/16/24 18:13 Freq: Status: Active Protocol: Document 09/09/24 13:47 LRN (Rec: 09/09/24 14:35 LRN [id number]) Palpation Assessment Location Leg length Palpation Location Medial malleolus Palpation Details Supine: slight longer R LE at start of therapy PT-OP-K Range of Motion Start: 08/16/24 18:13 Freq: Status: Active Protocol: Document 08/26/24 14:37 LRN (Rec: 08/26/24 15:36 LRN [id number]) Lumbar Spine Range of Motion Lumbar Spine Active Degrees Testing Position Standing Flexion 110 Extension 15 Rotation Left 20 Rotation Right 20 Lateral Flexion Left 10 Lateral Flexion Right 10 Hip Goniometric Range of Motion Hip Right Passive Testing Position Supine Internal Rotation 35 External Rotation 50 Left Passive Testing Position Supine Internal Rotation 35 External Rotation 50 PT-OP-M Strength Start: 08/16/24 18:13 Freq: Status: Active Protocol: Document 08/26/24 14:37 LRN (Rec: 08/26/24 15:36 LRN [id number]) Hip Strength Hip Manual Muscle Testing Right Flexion (L2) 4 Good Extension (S1) 3 Fair Comments Strength is 5/5 except as indicated above. Left Extension (S1) 3 Fair External Rotation 4+ Good+ Comments Strength is 5/5 except as indicated above. PT-OP-Q Treatments Start: 08/16/24 18:13 Freq: Status: Active Protocol: Document 10/25/24 07:33 LRN (Rec: 10/25/24 08:19 LRN [id number]) Therapeutic Exercises Supine Exercises Core strengthening Supine Exercise Name Reviewed as HEP:Single leg (SL ) March up and SL march down Equipment Used handout reviewed for progression of Lower abdominal program. Reps/Minutes 8' Comments Extra time for training and for education on progressive program. Kegel/L BKFO Supine Exercise Name Quick and Long hold Kegels w/ TA Side left Equipment Used Lev 2 TB Reps/Minutes 5' Kegel/Squeeze/TA Supine Exercise Name Towel squeeze/legs wide, PT hand under back, then pt hands on buttocks. Equipment Used towel roll between knees, pillow under hips Reps/Minutes 12 SH/20 SR x 10 Comments Extra time take to position w/ pillow to not engage trunk ext 's but elev hip Longhold Kegel Supine Exercise Name Manual cuing w/Longhold kegels - R anterior cues Reps/Minutes 5' Comments PF strength assessed Quick Kegel Supine Exercise Name Manual cuing with quick kegels , resisted L hip AD Reps/Minutes 8' Comments PF strength assessed Self-Care/Home Management Treatment Activities Self-Care/Home Management Activities Discussed and reviewed her HEP . Pt I/S to decr ex's to 5-6 reps if time limited and reviewed her progression ex's as pt has been doing all ex's vs starting with one and progressing to the next level. PT-OP-T Assessment and Plan Start: 08/16/24 18:13 Freq: Status: Active Protocol: Document 10/25/24 07:33 LRN (Rec: 10/25/24 08:19 LRN [id number]) Physical Therapy Assessment Goals Four Impairment Intermittent L Sciatic/[place] Pelvic bowel pain, 3/10 Medical Lab Director Goal (LTG) Improve pt posture, strengthen core to reduce onset or eliminate intermittent L sciatic pain. 09/09/24: Initiated core strengthening w/TA tightening/ PF/exhale. 09/16/24: HEP: Kegel/ADD ( pillow squeeze)/NS with TA. & Kegel/BilBKFO/NS with TA/Lv 2 TB. 09/23/24: No L Sciatic pain or pelvic bowel pain. 10/17/24: HEP: Lower abdominal progression program. LTG Duration 11/18/24 (10/17/24: MET GOAL) Three Impairment Pelvic pain (dull ache, 3/10 when pessary is in) Short Term Goal (STG) Strengthen PF, reducing pelvic pain to intemittent when pessary is in. 09/23/24: No c/o pelvic pain with pessary in. STG Duration 10/07/24 (09/23/24: MET GOAL) Jail Goal (LTG) Improve PF strength to decrease or eliminate pelvic pain. 09/23/24: No c/o pelvic pain with pessary in. LTG Duration 11/18/24 (09/23/24: MET GOAL) Two Impairment Stress urinary leakage Short Term Goal (STG) Pt will be educated and able to use urge deference technique to eliminate urinary leakage with a strong urge. 09/02/24: Used Urge deference technique to defer need to urinate with a strong urge through therapy session. 09/23/24: Sometimes leaks with a strong urge, 15-20% improvement, mostly when standing. Leakage happens after prolonged sitting. Rarely leaks with a cough, only when caught by surprise. 10/17/24: Leaks with strong urge while trying to get the pants off, but working on using the urge technique to control the leakage as she identifies if does the urge technique then she can make it to the bathroom.. 10/25/24: Leakage x 1 with strong urge. Coughed w/o leakage. STG Duration 10/07/24 (10/25/24: Partially met goal) Jail Goal (LTG) Improve PF strength to stop urinary leakage 90-100% of the time, with coughing, sit<> stand. 09/23/24: Sometimes leaks with a strong urge, 15-20% improvement, mostly when standing. Leakage happens after prolonged sitting. Rarely leaks with a cough, only when caught by surprise. 10/17/24: Leaks with strong urge, not yet doing urge deference technique on standing. 10/25/24: 80% improved with sit<>stand. 100% with a cough this week. LTG Duration 11/18/24 (10/25/24: Partially met goal) One Impairment Pt lacks an independent self care HEP. Short Term Goal (STG) Pt will be educated and able to demonstrate transfers to lessen core abdominal pressure . 09/09/24: Pt educated in core pressure mgmt with transfer. 09/16/24: Pt demonstrated transfer on/off plinth with good core pressure mgmt. STG Duration 10/07/24 (09/16/24: MET GOAL ) Medical Lab Director Goal (LTG) Pt will be independent in a self care HEP for PF strengthening. : HEP Kegel ex's on 08/26/24. HEP: TA/PF contraction w/breath. 09/16/24: HEP (added to previously issued HEP handout) : Kegel/ADD (pillow squeeze)/NS with TA. & Kegel/BilBKFO/NS with TA/Lv 2 TB. 09/18/24: HEP: [place] hip AD w/Quick & Longhold Kegel/ breath, and standing hip AD w/ Quick & Longhold Kegel/breath, (L>R). Progressed lumbopelvic stab program for HEP: bracing w/L BKFO. 10/17/24: HEP: self care: Lower abdominal progression, and Sidelie clamshell & reverse clamshell. LTG Duration 11/18/24 (10/25/24: MET GOAL ) Assessment Summary Assessment Pt is a 77 yo female w/pessary , who was in being seen for L sciatic pain and dx of cystocele, rectocele, and uterine prolapse due PF weakness. Her L sciatic pain appears to have resolved, and her pelvic pain she notes in her PUF questionnaire as being intermittent. Today pt is noting no perineum pain. Her PF strength has improved nicely from 0-1/5 to 2-3/5 except anteriorly is 1/5. Her endurance hold and ability to contract and relax has also improved. She has been able to stop urinary leakage 80% with sit<>stand and 100% with a cough (this week). She is leaking 1x/week with a stong urge. The pt appears to have a good understanding of her HEP and she feels confident to continue on her self care HEP . The pt has financial concerns with the start of the new year; therefore she is requesting discharge from therapy today. The pt did not gain full continence; therefore therapy in the future would be appropriate if the pt is not able to progress on her own, and she feels financially able to participate in therapy with a new referral. Physical Therapy Plan Frequency and Duration Frequency of Treatment 1x/Week Duration of treatment (weeks) 12 Plan of Care Start Date 08/26/24 Plan of Care End Date 11/18/24 Discharge Physical Therapy Discharge Reasons Patient Request Discharge Comments Pt is not able to attend her last scheduled visit next week , so she is requesting DC to her HEP today. Thank you for your referral.
== END 2024-10-28 09:39 | disposition home or self-care (01) ==
LOC: PHYS 07:30
PROVIDERS: Family Provider Family Medicine; PCP Family Medicine; Referring Provider Obstetrics & Gynecology; Visit Provider Obstetrics & Gynecology
DX: R14.3 Flatulence (principal); N81.89 Other female genital prolapse; M62.81 Muscle weakness (generalized); R10.2 Pelvic and perineal pain; M54.32 Sciatica, left side
CPT/HCPCS: 97110; 97140; 97162; 97530; 97535